=== PATIENT | male | born 2000 | race Hispanic/Latino ===

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

== ENCOUNTER 2022-06-29 13:54 | Emergency (ER) | payer OTHER ==
--- NOTE | 2022-06-29 14:54 | RAD REPORT ---
EXAM DESCRIPTION: Jules Single View06/29/2022 2:35 pm CLINICAL HISTORY: Chest pain COMPARISON: 2020 FINDINGS: The lungs appear clear of acute infiltrate. The heart is normal size IMPRESSION: No acute abnormalities displayed
--- NOTE | 2022-06-29 14:54 | RAD REPORT ---
EXAM DESCRIPTION: RAD - Ribs Left - 06/29/2022 2:35 pm CLINICAL HISTORY: Left rib pain FINDINGS: No fracture is seen
--- NOTE | 2022-06-29 15:42 | ER ---
Nurse's Notes [facility] Name: Gino Lim Age: 21 yrs Sex: Male : 2000 Arrival Date: 06/29/2022 Time: 13:54 Bed IW1 Private MD: Diagnosis: Contusion of left front wall of thorax Presentation: 06/29 14:07 Chief complaint: Patient states: Left rib pain - skateboarding and fell onto left arm. ld1 Negative LOC - did not hit head. Coronavirus screen: At this time, the client does not indicate any symptoms associated with coronavirus-19. Ebola Screen: No symptoms or risks identified at this time. Risk Assessment: Do you want to hurt yourself or someone else? Patient reports no desire to harm self or others. Onset of symptoms was June 29, 2022. 14:07 Method Of Arrival: Ambulatory ld1 14:07 Acuity: IRA 4 ld1 Triage Assessment: 14:07 General: Appears in no apparent distress. comfortable, Behavior is calm, cooperative, ld1 appropriate for age. Pain: Complains of pain in diaphragm Pain does not radiate. Pain currently is 0 out of 10 on a pain scale. at worst was 9 out of 10 on a pain scale. Quality of pain is described as throbbing. EENT: No signs and/or symptoms were reported regarding the EENT system. Neuro: Level of Consciousness is awake, alert, obeys commands, Oriented to person, place, time, situation. Cardiovascular: Capillary refill < 3 seconds Patient's skin is warm and dry. Respiratory: Airway is patent Respiratory effort is even, unlabored. GI: Abdomen is flat, non-distended. : No signs and/or symptoms were reported regarding the genitourinary system. Derm: No signs and/or symptoms reported regarding the dermatologic system. Musculoskeletal: No signs and/or symptoms reported regarding the musculoskeletal system. Historical: - Allergies: 14:07 No Known Allergies; ld1 - Home Meds: 14:07 None [Active]; ld1 - PMHx: 14: None; ld1 - PSHx: 14:07 None; ld1 - Immunization history:: Adult Immunizations up to date, Client reports receiving the 2nd dose of the Covid vaccine. - Social history:: Smoking status: Patient denies any tobacco usage or history of. Patient/guardian denies using alcohol. Screenin:44 [facility] ED Fall Risk Assessment (Adult) History of falling in the last 3 months, cm9 including since admission No falls in past 3 months (0 pts). Abuse screen: Denies threats or abuse. Denies injuries from another. Nutritional screening: No deficits noted. Tuberculosis screening: No symptoms or risk factors identified. Assessment: 15:44 Reassessment: See triage assessment. cm9 Vital Signs: 14:07 BP 124 / 73; Pulse 81; Resp 18; Temp 98.2(O); Pulse Ox 100% on R/A; Weight 61.23 kg; ld1 Height 6 ft. 0 in. ; Pain 0/10; 14:07 Body Mass Index 18.31 (61.23 kg, 182.88 cm) ld1 14:07 Pain Scale: Adult ld1 ED Course: 13:55 Patient arrived in ED. ts1 13:58 Snow Cruz FNP-C [facility] kb 13:58 Bo Goss DO is Attending Physician. kb 14:07 Triage completed. ld1 14:07 Arm band placed on right wrist. EKG completed in triage. Results shown to MD. EKG ld1 completed in triage. Results shown to MD. 14:37 Chest Single View XRAY In Process Unspecified. EDMS 14:37 Ribs Left XRAY In Process Unspecified. EDMS 15:44 Patient has correct armband on for positive identification. Placed in gown. Bed in low cm9 position. Call light in reach. Side rails up X2. Pulse ox on. NIBP on. Door closed. Noise minimized. 15:44 No provider procedures requiring assistance completed. Patient did not have IV access cm9 during this emergency room visit. Administered Medications: No medications were administered Medication: 15:44 VIS not applicable for this client. cm9 Outcome: 15:41 Discharge ordered by . nick 15:44 Discharged to home ambulatory. cm9 15:44 Condition: stable 15:44 Discharge instructions given to patient, Instructed on discharge instructions, follow up and referral plans. medication usage, Demonstrated understanding of instructions, follow-up care, medications, Prescriptions given X 1. 15:45 Patient left the ED. cm9 Signatures: Dispatcher [employer] EDMS Snow Cruz FNP-C FNP-Ckb Sims, Elisha, RN RN ld1 Ana Dwyer, RN RN cm9 Stacy Dugan, SUSAN DAVIS ts1
--- NOTE | 2022-06-29 15:42 | EDPHYS ---
Physician Documentation [facility] Name: Gino Lim Age: 21 yrs Sex: Male : 2000 Arrival Date: 06/29/2022 Time: 13:54 Bed IW1 Private MD: ED Physician Bo Goss HPI: 06/29 15:38 This 21 yrs old Male presents to ER via Ambulatory with complaints of RIB PAIN kb FROM FALL. 15:39 The patient or guardian reports chest pain that is located primarily in the anterior kb chest wall. Onset: The symptoms/episode began/occurred last night. The pain does not radiate. Associated signs and symptoms: The patient has no apparent associated signs or symptoms. The chest pain is described as aching. Duration: The patient or guardian reports a single episode, that is still ongoing. Modifying factors: the symptoms are aggravated by deep breath, movement. Severity of pain: At its worst the pain was moderate in the emergency department the pain has improved. The patient has not experienced similar symptoms in the past. The patient has not recently seen a physician. Pt reports he fell while skateboarding last night and landed with left arm underneath ribs. c/o left lower anterior rib pain. States he has no pain at rest. Pain only with movement and deep breath. Pt has no abd tenderness upon exam. Historical: - Allergies: 14:07 No Known Allergies; ld1 - Home Meds: 14:07 None [Active]; ld1 - PMHx: 14:07 None; ld1 - PSHx: 14:07 None; ld1 - Immunization history:: Adult Immunizations up to date, Client reports receiving the 2nd dose of the Covid vaccine. - Social history:: Smoking status: Patient denies any tobacco usage or history of. Patient/guardian denies using alcohol. ROS: 15:36 Constitutional: Negative for fever, chills, and weight loss. kb 15:36 Cardiovascular: Positive for chest pain, with movement, of the left anterior lower ribs. 15:36 All other systems are negative. Exam: 15:36 Constitutional: This is a well developed, well nourished patient who is awake, alert, kb and in no acute distress. Head/Face: Normocephalic, atraumatic. ENT: Moist Mucous membranes Cardiovascular: Regular rate and rhythm with a normal S1 and S2. No gallops, murmurs, or rubs. No pulse deficits. Respiratory: Respirations even and unlabored. No increased work of breathing. Talking in full sentences Abdomen/GI: Soft, non-tender. No distention Skin: Warm, dry with normal turgor. Normal color. MS/ Extremity: Pulses equal, no cyanosis. Neurovascular intact. Full, normal range of motion. Neuro: Awake and alert, GCS 15, oriented to person, place, time, and situation. Moves all extremities. Normal gait. 15:36 Chest/axilla: Inspection: normal, Palpation: tenderness, that is moderate, of the left anterior lower ribs, that totally reproduces the patient's complaints. Vital Signs: 14:07 BP 124 / 73; Pulse 81; Resp 18; Temp 98.2(O); Pulse Ox 100% on R/A; Weight 61.23 kg; ld1 Height 6 ft. 0 in. ; Pain 0/10; 14:07 Body Mass Index 18.31 (61.23 kg, 182.88 cm) ld1 14:07 Pain Scale: Adult ld1 MDM: 14:05 Patient medically screened. kb 15:03 Data reviewed: vital signs, nurses notes. kb 15:37 Differential diagnosis: fracture, contusion. Counseling: I had a detailed discussion kb with the patient and/or guardian regarding: the historical points, exam findings, and any diagnostic results supporting the discharge/admit diagnosis, radiology results, the need for outpatient follow up, a family practitioner, to return to the emergency department if symptoms worsen or persist or if there are any questions or concerns that arise at home. 06/29 14:10 Order name: Chest Single View XRAY; Complete Time: 14:59 kb 06/29 14:10 Order name: Ribs Left XRAY; Complete Time: 14:59 kb Administered Medications: No medications were administered Disposition: 19:33 Co-signature as Attending Physician, Bo MCGHEE was immediately available on-site ms3 in the Emergency Department for consultation in the care of the patient. Disposition Summary: 06/29/22 15:41 Discharge Ordered Location: Home kb Condition: Stable kb Diagnosis - Contusion of left front wall of thorax kb Followup: kb - With: Emergency Department - When: As needed - Reason: Worsening of condition Followup: kb - With: Private Physician - When: 2 - 3 days - Reason: Recheck today's complaints, Continuance of care, Re-evaluation by your physician Discharge Instructions: - Discharge Summary Sheet kb - Rib Contusion kb Forms: - Medication Reconciliation Form kb - Thank You Letter kb - Antibiotic Education kb - Prescription Opioid Use kb Prescriptions: - Diclofenac Sodium 75 mg Oral tablet,delayed release (DR/EC) - take 1 tablet by ORAL route 2 times per day As needed; 30 tablet; Refills: 0, kb Product Selection Permitted Signatures: Dispatcher [employer] EDMS Snow Cruz, SOLE TACKER-C SOLE TACKER-Bo Torres, DO ms3 Elisha Goss, RN RN ld1
[2022-06-29 15:52] VITALS: BP 124/73; TEMP 98.2; O2SAT 100
== END 2022-06-29 15:45 | disposition home or self-care (01) ==
LOC: ER 13:54
DX: S20.212A Contusion of left front wall of thorax, initial encounter (principal)
CPT/HCPCS: 71045; 99283

== ENCOUNTER 2022-07-04 22:28 | Emergency (ER) | payer OTHER ==
--- OUTSIDE RECORDS SUMMARY | 2022-07-04 22:33 | XMS REPORT | Continuity of Care Document ---
:2000 Author Organization [facility] t Address [address] [place] [address] [address] [place] [address] Care Team Providers Name Role Phone Bobbi Hillman PA-C Primary Care Physician [phone] Doctor Unassigned, Parral Attending Clinician Unavailable Bobbi Hillman PA-C Attending Clinician BOBBI HILLMAN Attending Clinician Unavailable DEMARCUS MORA Attending Clinician Unavailable Payers Payer Name Policy Type Policy Number Effective Date Expiration Date S ource Problems Condition Condition Condition Status Onset Resolution Last Treating Co mments Source Name Details Category Date Date Treatment Clinician Date No known No known Disease Unive rs active active ity of problems problems [facility] Allergies, Adverse Reactions, Alerts Allergy Allergy Status Severity Reaction(s) Onset Inactive Treating Comm ents Source Name Type Date Date Clinician NO KNOWN Drug Active Univers ALLERGIE Class ity of S [facility] Social History Social Habit Start Date Stop Date Quantity Comments Source Tobacco use and 2017-07-11 2017-07-11 Never used [facility] exposure 00:00:00 00:00:00 [facility] Sex Assigned At 2000 2002 [facility] 00:00:00 00:00:00 [facility] Smoking Status Start Date Stop Date Source Never smoker [facility] Medications Ordered Filled Start Stop Current Ordering Indication Dosage Frequency Signature Comments Components Source Medication Medication Date Date Medication? Clinician (SIG) Name Name nina 2020-03 Yes [id number] APPLY TO U aguedaers (NATROBA) 03-12 DRY HAIR, ity o f 0.9 % 00:00: COMPLETELY [place] suspension 00 SATURATE. Medi matti LET SIT 10 Branch MINUTES, THEN WASH HAIR. REMOVE NITS spinosad 1 Yes [id number] APPLY TO U nivers (NATROBA) 1- DRY HAIR, ity o f 0.9 % 00:00: COMPLETELY [place] suspension 00 SATURATE. Medi matti LET SIT 10 Branch MINUTES, THEN WASH HAIR. REMOVE NITS spinosad 2020-0 Yes [id number] Apply to U nivers (NATROBA) 9 dry hair, ity o f 0.9 % 00:00: completely [place] suspension 00 saturate. Medi matti Let sit 10 Branch minutes, then wash hair. Remove nits spinosad 2020-0 Yes [id number] Apply to U nivers (NATROBA) 9 dry hair, ity o f 0.9 % 00:00: completely [place] suspension 00 saturate. Medi matti Let sit 10 Branch minutes, then wash hair. Remove nits spinosad 2020-0 2020- No [id number] Apply to Univers (NATROBA) 11-10 11- dry hair, ity of 0.9 % 00:00: 00:00 completely [place] suspension 00 :00 saturate. Medi matti Let sit 10 Branch minutes, then wash hair. Remove nits sulfamethox 2020-0 Yes [id number] 1{tbl} Take 1 Univers azole-trime 2-10 tablet by ity of thoprim 00:00: mouth 2 [place] (BACTRIM 00 (two) Medical DS) 800-160 times Branch mg per daily. tablet ketoconazol 2020-0 Yes [id number] Apply, Univers e 2 % 2-10 lather ity of shampoo 00:00: area, [place] 00 leave 5 to Medical 10 minutes Branch and rinse. Can use Daily ketoconazol 2020-0 Yes [id number] Apply to Univers e 2 % cream 2-10 area(s) ity o f 00:00: daily. [place] 00 Medical Branch sulfamethox 2020-0 Yes [id number] 1{tbl} Take 1 Univers azole-trime 2-10 tablet by ity of thoprim 00:00: mouth 2 [place] (BACTRIM 00 (two) Medical DS) 800-160 times Branch mg per daily. tablet ketoconazol 2020-0 Yes [id number] Apply, Univers e 2 % 2-10 lather ity of shampoo 00:00: [facility], [place] 00 leave 5 to Medical 10 minutes Branch and rinse. Can use Daily ketoconazol 2020-0 Yes [id number] Apply to Univers e 2 % cream 2-10 area(s) ity o f 00:00: daily. [place] [address] Medical Branch sulfamethox 2020-0 Yes [id number] 1{tbl} Take 1 Univers azole-trime 2-10 tablet by ity of thoprim 00:00: mouth 2 [place] (BACTRIM 00 (two) Medical DS) 800-160 times Branch mg per daily. tablet ketoconazol 2020-0 Yes [id number] Apply, Univers e 2 % 2-10 lather ity of shampoo 00:00: [place], [place] leave 5 to Medical 10 minutes Branch and rinse. Can use Daily ketoconazol 2020-0 Yes [id number] Apply to Univers e 2 % cream 2-10 area(s) ity o f 00:00: daily. [place] [address] Medical Branch sulfamethox 2020-0 Yes [id number] 1{tbl} Take 1 Univers azole-trime 2-10 tablet by ity of thoprim 00:00: mouth 2 [place] (BACTRIM 00 (two) Medical DS) 800-160 times Branch mg per daily. tablet ketoconazol 2020-0 Yes [id number] Apply, Univers e 2 % 2-10 lather ity of shampoo 00:00: [place], [place] leave 5 to Medical 10 minutes Branch and rinse. Can use Daily ketoconazol 2020-0 Yes [id number] Apply to Univers e 2 % cream 2-10 area(s) ity o f 00:00: daily. [place] [address] Medical Branch sulfamethox 2020-0 Yes [id number] 1{tbl} Take 1 Univers azole-trime 2-10 tablet by ity of thoprim 00:00: mouth 2 [place] (BACTRIM 00 (two) Medical DS) 800-160 times Branch mg per daily. tablet ketoconazol 2020-0 Yes [id number] Apply, Univers e 2 % 2-10 lather ity of shampoo 00:00: [facility], [place] 00 leave 5 to Medical 10 minutes Branch and rinse. Can use Daily ketoconazol 2020-0 Yes [id number] Apply to Univers e 2 % cream 2-10 area(s) ity o f 00:00: daily. [place] [address] Medical Branch sulfamethox 2020-0 Yes [id number] 1{tbl} Take 1 Univers azole-trime 2-10 tablet by ity of thoprim 00:00: mouth 2 [place] (BACTRIM 00 (two) Medical DS) 800-160 times Branch mg per daily. tablet ketoconazol 2020-0 Yes [id number] Apply, Univers e 2 % 2-10 lather ity of shampoo 00:00: [facility], [place] 00 leave 5 to Medical 10 minutes Branch and rinse. Can use Daily ketoconazol 2020-0 Yes [id number] Apply to Univers e 2 % cream 2-10 area(s) ity o f 00:00: daily. [place] [address] Medical Branch sulfamethox 2020-0 Yes [id number] 1{tbl} Take 1 Univers azole-trime 2-10 tablet by ity of thoprim 00:00: mouth 2 [place] (BACTRIM 00 (two) Medical DS) 800-160 times Branch mg per daily. tablet ketoconazol 2020-0 Yes [id number] Apply, Univers e 2 % 2-10 lather ity of shampoo 00:00: [facility], [place] 00 leave 5 to Medical 10 minutes Branch and rinse. Can use Daily ketoconazol 2020-0 Yes [id number] Apply to Univers e 2 % cream 2-10 area(s) ity o f 00:00: daily. [place] [address] Medical Branch amoxicillin 2020-0 2020- No TAKE 1 Uni vers 500 mg 03-10 CAPSULE BY ity of capsule 00:00: 00:00 MOUTH 3 [place] 00 :00 TIMES A Medical DAY UNTILL Branch ALL GONE DENTA 5000 2020-0 2020- No USE 2 Unive rs PLUS 1.1 % 03-10-10 TIMES A ity o f Crea 00:00: 00:00 DAY ONCE [place] 00 :00 IN THE Medical MORNING Branch AND ONCE AT NIGHT DO NOT DRINK FOR AT LEAST 30 MINUTES amoxicillin 2020-0 2020- No TAKE 1 Uni vers 500 mg 03-1010 CAPSULE BY ity of capsule 00:00: 00:00 MOUTH 3 [place] 00 :00 TIMES A Medical DAY UNTILL Branch ALL GONE DENTA 5000 2020-0 2020- No USE 2 Unive rs PLUS 1.1 % 1-07 02-10 TIMES A ity o f Crea 00:00: 00:00 DAY ONCE [place] 00 :00 IN THE Medical MORNING Branch AND ONCE AT NIGHT DO NOT DRINK FOR AT LEAST 30 MINUTES spinosad 2019-0 2019- No [id number] Apply to Univers (NATROBA) 8-15 08-16 area(s) ity of 0.9 % 00:00: 04:59 once now [place] suspension 00 :00 for 1 Medical dose. Branch tretinoin 2017-0 Yes Apply to Univ ers 0.1 % cream 5-10 area(s) at it y of 00:00: bedtime. Medical Branch tretinoin 2017-0 Yes Apply to Univ ers 0.1 % cream 5-10 area(s) at it y of 00:00: bedtime. Medical Branch tretinoin 2017-0 Yes Apply to Univ ers 0.1 % cream 5-10 area(s) at it y of 00:00: bedtime. Medical Branch tretinoin 2017-0 Yes Apply to Univ ers 0.1 % cream 5-10 area(s) at it y of 00:00: bedtime. Medical Branch tretinoin 2017-0 Yes Apply to Univ ers 0.1 % cream 5-10 area(s) at it y of 00:00: bedtime. Medical Branch tretinoin 2017-0 Yes Apply to Univ ers 0.1 % cream 5-10 area(s) at it y of 00:00: bedtime. Medical Branch tretinoin 2017-0 Yes Apply to Univ ers 0.1 % cream 5-10 area(s) at it y of 00:00: bedtime. Medical Branch tretinoin 2017-0 Yes Apply to Univ ers 0.1 % cream 5-10 area(s) at it y of 00:00: bedtime. Medical Branch tretinoin 2017-0 Yes Apply to Univ ers 0.1 % cream 5-10 area(s) at it y of 00:00: bedtime. Medical Branch tretinoin 2017-0 Yes Apply to Univ ers 0.1 % cream 5-10 area(s) at it y of 00:00: bedtime. Medical Branch tretinoin 2017-0 Yes Apply to Univ ers 0.1 % cream 5-10 area(s) at it y of 00:00: bedtime. [address] Immunizations Ordered Immunization Filled Immunization Date Status Commen ts Source Name Name HPV9 2017-07-11 Completed University of 00:00:00 [facility] HPV9 2017-07-11 Completed University of 00:00:00 [facility] HPV9 2017-07-11 Completed University of 00:00:00 [facility] HPV9 2017-07-11 Completed University of 00:00:00 [facility] HPV9 2017-07-11 Completed University of 00:00:00 [facility] HPV9 2017-07-11 Completed University of 00:00:00 [facility] HPV9 2017-07-11 Completed University of 00:00:00 [facility] HPV9 2017-07-11 Completed University of 00:00:00 [facility] HPV9 2017-07-11 Completed University of 00:00:00 [facility] HPV9 2017-07-11 Completed University of 00:00:00 [facility] HPV9 2017-07-11 Completed University of 00:00:00 [facility] HPV 2015-09-23 Completed University of 00:00:00 [facility] HPV 2015-09-23 Completed University of 00:00:00 [facility] HPV 2015-09-23 Completed University of 00:00:00 [facility] HPV 2015-09-23 Completed University of 00:00:00 [facility] HPV 2015-09-23 Completed University of 00:00:00 [facility] HPV 2015-09-23 Completed University of 00:00:00 [facility] HPV 2015-09-23 Completed University of 00:00:00 [facility] HPV 2015-09-23 Completed University of 00:00:00 [facility] HPV 2015-09-23 Completed University of 00:00:00 [facility] HPV 2015-09-23 Completed University of 00:00:00 [facility] HPV 2015-09-23 Completed University of 00:00:00 [facility] Meningococcal 2014-09-09 Completed University of Polysaccharide 00:00:00 [place] Medi matti (groups A, C, Y and Branc h W-135) conjugate vaccine (MCV4P) Tdap 2014-09-09 Completed University of 00:00:00 [facility] Meningococcal 2014-09-09 Completed University of Polysaccharide 00:00:00 [place] Medi matti (groups A, C, Y and Branc h W-135) conjugate vaccine (MCV4P) Tdap 2014-09-09 Completed University of 00:00:00 [facility] Meningococcal 2014-09-09 Completed University of Polysaccharide 00:00:00 [place] Medi matti (groups A, C, Y and Branc h W-135) conjugate vaccine (MCV4P) Tdap 2014-09-09 Completed University of 00:00:00 [facility] Meningococcal 2014-09-09 Completed University of Polysaccharide 00:00:00 [place] Medi matti (groups A, C, Y and Branc h W-135) conjugate vaccine (MCV4P) Tdap 2014-09-09 Completed University of 00:00:00 [facility] Meningococcal 2014-09-09 Completed University of Polysaccharide 00:00:00 [place] Medi matti (groups A, C, Y and Branc h W-135) conjugate vaccine (MCV4P) Tdap 2014-09-09 Completed University of 00:00:00 [facility] Meningococcal 2014-09-09 Completed University of Polysaccharide 00:00:00 [place] Medi matti (groups A, C, Y and Branc h W-135) conjugate vaccine (MCV4P) Meningococcal 2014-09-09 Completed University of Polysaccharide 00:00:00 [place] Medi matti (groups A, C, Y and Branc h W-135) conjugate vaccine (MCV4P) TDAP 2014-09-09 Completed University of 00:00:00 [facility] Meningococcal 2014-09-09 Completed University of Polysaccharide 00:00:00 [place] Medi matti (groups A, C, Y and Branc h W-135) conjugate vaccine (MCV4P) TDAP 2014-09-09 Completed University of 00:00:00 [facility] Meningococcal 2014-09-09 Completed University of Polysaccharide 00:00:00 [place] Medi matti (groups A, C, Y and Branc h W-135) conjugate vaccine (MCV4P) Tdap 2014-09-09 Completed University of 00:00:00 [facility] TDAP 2014-09-09 Completed University of 00:00:00 [facility] Meningococcal 2014-09-09 Completed University of Polysaccharide 00:00:00 [place] Medi matti (groups A, C, Y and Branc h W-135) conjugate vaccine (MCV4P) TDAP 2014-09-09 Completed University of 00:00:00 [facility] Meningococcal 2014-09-09 Completed University of Polysaccharide 00:00:00 [facility] matti (groups A, C, Y and Branc h W-135) conjugate vaccine (MCV4P) Tdap 2014-09-09 Completed University of 00:00:00 [facility] Influenza Virus 2011-12-27 Completed Universit y of Vaccine 00:00:00 [facility] Influenza Virus 2011-12-27 Completed Universit y of Vaccine 00:00:00 [facility] Influenza Virus 2011-12-27 Completed Universit y of Vaccine 00:00:00 [facility] Influenza Virus 2011-12-27 Completed Universit y of Vaccine 00:00:00 [facility] Influenza Virus 2011-12-27 Completed Universit y of Vaccine 00:00:00 [facility] Influenza Virus 2011-12-27 Completed Universit y of Vaccine 00:00:00 [facility] Influenza Virus 2011-12-27 Completed Universit y of Vaccine 00:00:00 [facility] Influenza Virus 2011-12-27 Completed Universit y of Vaccine 00:00:00 [facility] Influenza Virus 2011-12-27 Completed Universit y of Vaccine 00:00:00 [facility] Influenza Virus 2011-12-27 Completed Universit y of Vaccine 00:00:00 [facility] Influenza Virus 2011-12-27 Completed Universit y of Vaccine 00:00:00 [facility] HEPATITIS A 2008-04-20 Completed University of 00:00:00 [facility] HEPATITIS A 2008-04-20 Completed University of 00:00:00 [facility] HEPATITIS A 2008-04-20 Completed University of 00:00:00 [facility] HEPATITIS A 2008-04-20 Completed University of 00:00:00 [facility] HEPATITIS A 2008-04-20 Completed University of 00:00:00 [facility] HEPATITIS A 2008-04-20 Completed University of 00:00:00 [facility] HEPATITIS A 2008-04-20 Completed University of 00:00:00 [facility] HEPATITIS A 2008-04-20 Completed University of 00:00:00 [facility] HEPATITIS A 2008-04-20 Completed University of 00:00:00 [facility] HEPATITIS A 2008-04-20 Completed University of 00:00:00 [facility] HEPATITIS A 2008-04-20 Completed University of 00:00:00 [facility] HEPATITIS A 2007-10-16 Completed University of 00:00:00 [facility] HEPATITIS A 2007-10-16 Completed University of 00:00:00 [facility] HEPATITIS A 2007-10-16 Completed University of 00:00:00 [facility] HEPATITIS A 2007-10-16 Completed University of 00:00:00 [facility] HEPATITIS A 2007-10-16 Completed University of 00:00:00 [facility] HEPATITIS A 2007-10-16 Completed University of 00:00:00 [facility] HEPATITIS A 2007-10-16 Completed University of 00:00:00 [facility] HEPATITIS A 2007-10-16 Completed University of 00:00:00 [facility] HEPATITIS A 2007-10-16 Completed University of 00:00:00 [facility] HEPATITIS A 2007-10-16 Completed University of 00:00:00 [facility] HEPATITIS A 2007-10-16 Completed University of 00:00:00 [facility] MMR 2006 Completed University of 00:00:00 [facility] Pneumococcal 13 2006 Completed Universit y of Conjugate, PCV13 00:00:00 [place] Me dical (Prevnar 13) Branch Varicella 2006 Completed University of (varivax)(chicken 00:00:00 [place] M edical pox) Branch DTAP 2006 Completed University of 00:00:00 [facility] MMR 2006 Completed University of 00:00:00 [facility] Pneumococcal 13 2006 Completed Universit y of Conjugate, PCV13 00:00:00 [place] Me dical (Prevnar 13) Branch Varicella 2006 Completed University of (varivax)(chicken 00:00:00 [place] M edical pox) Branch DTAP 2006 Completed University of 00:00:00 [facility] MMR 2006 Completed University of 00:00:00 [facility] DTAP 2006 Completed University of 00:00:00 [facility] Pneumococcal 13 2006 Completed Universit y of Conjugate, PCV13 00:00:00 [place] Me dical (Prevnar 13) Branch Varicella 2006 Completed University of (varivax)(chicken 00:00:00 [place] M edical pox) Branch DTAP 2006 Completed University of 00:00:00 [facility] MMR 2006 Completed University of 00:00:00 [place] [facility] Pneumococcal 13 2006 Completed Universit y of Conjugate, PCV13 00:00:00 [place] Me dical (Prevnar 13) Branch Varicella 2006 Completed University of (varivax)(chicken 00:00:00 [place] M edical pox) Branch DTAP 2006 Completed University of 00:00:00 [facility] MMR 2006 Completed University of 00:00:00 [facility] Pneumococcal 13 2006 Completed Universit y of Conjugate, PCV13 00:00:00 [place] Me dical (Prevnar 13) Branch Varicella 2006 Completed University of (varivax)(chicken 00:00:00 [place] M edical pox) Branch DTAP 2006 Completed University of 00:00:00 [facility] MMR 2006 Completed University of 00:00:00 [facility] Pneumococcal 13 2006 Completed Universit y of Conjugate, PCV13 00:00:00 [place] Me dical (Prevnar 13) Branch Varicella 2006 Completed University of (varivax)(chicken 00:00:00 [place] M edical pox) Branch MMR 2006 Completed University of 00:00:00 [facility] DTAP 2006 Completed University of 00:00:00 [facility] MMR 2006 Completed University of 00:00:00 [facility] Pneumococcal 13 2006 Completed Universit y of Conjugate, PCV13 00:00:00 [place] Me dical (Prevnar 13) Branch Varicella 2006 Completed University of (varivax)(chicken 00:00:00 [place] M edical pox) Branch Pneumococcal 13 2006 Completed Universit y of Conjugate, PCV13 00:00:00 [place] Me dical (Prevnar 13) Branch DTAP 2006 Completed University of 00:00:00 [facility] MMR 2006 Completed University of 00:00:00 [facility] Pneumococcal 13 2006 Completed Universit y of Conjugate, PCV13 00:00:00 [place] Me dical (Prevnar 13) Branch Varicella 2006 Completed University of (varivax)(chicken 00:00:00 [place] M edical pox) Branch Varicella 2006 Completed University of (varivax)(chicken 00:00:00 [place] M edical pox) Branch DTAP 2006 Completed University of 00:00:00 [facility] MMR 2006 Completed University of 00:00:00 [facility] Pneumococcal 13 2006 Completed Universit y of Conjugate, PCV13 00:00:00 [facility] dical (Prevnar 13) Branch Varicella 2006 Completed University of (varivax)(chicken 00:00:00 [place] M edical pox) Branch DTAP 2006 Completed University of 00:00:00 [facility] MMR 2006 Completed University of 00:00:00 [facility] Pneumococcal 13 2006 Completed Universit y of Conjugate, PCV13 00:00:00 [facility] dical (Prevnar 13) Branch Varicella 2006 Completed University of (varivax)(chicken 00:00:[address] [facility] edical pox) Branch DTAP 2006 Completed University of 00:00:00 [facility] DTAP 2004-02-14 Completed University of 00:00:00 [facility] DTAP 2004-02-14 Completed University of 00:00:00 [facility] DTAP 2004-02-14 Completed University of 00:00:00 [facility] DTAP 2004-02-14 Completed University of 00:00:00 [facility] DTAP 2004-02-14 Completed University of 00:00:00 [facility] DTAP 2004-02-14 Completed University of 00:00:00 [facility] DTAP 2004-02-14 Completed University of 00:00:00 [facility] DTAP 2004-02-14 Completed University of 00:00:00 [facility] DTAP 2004-02-14 Completed University of 00:00:00 [facility] DTAP 2004-02-14 Completed University of 00:00:00 [facility] DTAP 2004-02-14 Completed University of 00:00:00 [facility] Polio (IPV/OPV) 2004-01-14 Completed Universit y of 00:00:00 [facility] Polio (IPV/OPV) 2004-01-14 Completed Universit y of 00:00:00 [facility] Polio (IPV/OPV) 2004-01-14 Completed Universit y of 00:00:00 [facility] Polio (IPV/OPV) 2004-01-14 Completed Universit y of 00:00:00 [facility] Polio (IPV/OPV) 2004-01-14 Completed Universit y of 00:00:00 [facility] Polio (IPV/OPV) 2004-01-14 Completed Universit y of 00:00:00 [facility] Polio (IPV/OPV) 2004-01-14 Completed Universit y of 00:00:00 [facility] Polio (IPV/OPV) 2004-01-14 Completed Universit y of 00:00:00 [facility] Polio (IPV/OPV) 2004-01-14 Completed Universit y of 00:00:00 [facility] Polio (IPV/OPV) 2004-01-14 Completed Universit y of 00:00:00 [facility] Polio (IPV/OPV) 2004-01-14 Completed Universit y of 00:00:00 [facility] MMR 2004-01-04 Completed University of 00:00:00 [facility] Varicella 2004-01-04 Completed University of (varivax)(chicken 00:00:00 [place] M edical pox) Branch HIB 4 Dose Schedule 2004-01-04 Completed Unive rsity of 00:00:00 [facility] MMR 2004-01-04 Completed University of 00:00:00 [facility] Varicella 2004-01-04 Completed University of (varivax)(chicken 00:00:00 [place] M edical pox) Branch HIB 4 Dose Schedule 2004-01-04 Completed Unive rsity of 00:00:00 [facility] MMR 2004-01-04 Completed University of 00:00:00 [facility] Varicella 2004-01-04 Completed University of (varivax)(chicken 00:00:00 [place] M edical pox) Branch HIB 4 Dose Schedule 2004-01-04 Completed Unive rsity of 00:00:00 [facility] HIB 4 Dose Schedule 2004-01-04 Completed Unive rsity of 00:00:00 [facility] MMR 2004-01-04 Completed University of 00:00:00 [facility] Varicella 2004-01-04 Completed University of (varivax)(chicken 00:00:00 [place] M edical pox) Branch HIB 4 Dose Schedule 2004-01-04 Completed Unive rsity of 00:00:00 [facility] MMR 2004-01-04 Completed University of 00:00:00 [facility] Varicella 2004-01-04 Completed University of (varivax)(chicken 00:00:00 [place] M edical pox) Branch HIB 4 Dose Schedule 2004-01-04 Completed Unive rsity of 00:00:00 [facility] MMR 2004-01-04 Completed [facility] 00:00:00 [facility] MMR 2004-01-04 Completed [facility] of 00:00:00 [facility] Varicella 2004-01-04 Completed University of (varivax)(chicken 00:00:00 [place] [facility] pox) [facility] HIB 4 Dose Schedule 2004-01-04 Completed Unive rsity of 00:00:00 [facility] MMR 2004-01-04 Completed [facility] of 00:00:00 [facility] Varicella 2004-01-04 Completed University of (varivax)(chicken 00:00:00 [place] [facility] pox) [facility] HIB 4 Dose Schedule 2004-01-04 Completed Unive rsity of 00:00:00 [facility] MMR 2004-01-04 Completed [facility] of 00:00:00 [facility] Varicella 2004-01-04 Completed [facility] of (varivax)(chicken 00:00:00 [place] [facility] pox) [facility] Varicella 2004-01-04 Completed [facility] of (varivax)(chicken 00:00:00 [place] [facility] pox) [facility] HIB 4 Dose Schedule 2004-01-04 Completed Unive rsity of 00:00:00 [facility] MMR 2004-01-04 Completed [facility] of 00:00:00 [facility] Varicella 2004-01-04 Completed [facility] of (varivax)(chicken 00:00:00 [place] [facility] pox) [facility] HIB 4 Dose Schedule 2004-01-04 Completed Unive rsity of 00:00:00 [facility] MMR 2004-01-04 Completed [facility] of 00:00:00 [facility] Varicella 2004-01-04 Completed [facility] of (varivax)(chicken 00:00:00 [place] [facility] pox) [facility] HIB 4 Dose Schedule 2004-01-04 Completed Unive rsity of 00:00:00 [facility] Polio (IPV/OPV) 2003-11-14 Completed Universit y of 00:00:00 [facility] HIB 4 Dose Schedule 2003-11-14 Completed Unive rsity of 00:00:00 [place] [facility] Polio (IPV/OPV) 2003-11-14 Completed Universit y of 00:00:00 [place] [facility] HIB 4 Dose Schedule 2003-11-14 Completed Unive rsity of 00:00:00 [place] [facility] Polio (IPV/OPV) 2003-11-14 Completed Universit y of 00:00:00 [facility] HIB 4 Dose Schedule 2003-11-14 Completed Unive rsity of 00:00:00 [facility] HIB 4 Dose Schedule 2003-11-14 Completed Unive rsity of 00:00:00 [place] [facility] Polio (IPV/OPV) 2003-11-14 Completed Universit y of 00:00:00 [facility] HIB 4 Dose Schedule 2003-11-14 Completed Unive rsity of 00:00:00 [facility] Polio (IPV/OPV) 2003-11-14 Completed Universit y of 00:00:00 [facility] HIB 4 Dose Schedule 2003-11-14 Completed Unive rsity of 00:00:00 [facility] Polio (IPV/OPV) 2003-11-14 Completed Universit y of 00:00:00 [facility] HIB 4 Dose Schedule 2003-11-14 Completed Unive rsity of 00:00:00 [facility] Polio (IPV/OPV) 2003-11-14 Completed Universit y of 00:00:00 [facility] HIB 4 Dose Schedule 2003-11-14 Completed Unive rsity of 00:00:00 [facility] Polio (IPV/OPV) 2003-11-14 Completed Universit y of 00:00:00 [facility] Polio (IPV/OPV) 2003-11-14 Completed Universit y of 00:00:00 [facility] HIB 4 Dose Schedule 2003-11-14 Completed Unive rsity of 00:00:00 [facility] Polio (IPV/OPV) 2003-11-14 Completed Universit y of 00:00:00 [facility] HIB 4 Dose Schedule 2003-11-14 Completed Unive rsity of 00:00:00 [facility] Polio (IPV/OPV) 2003-11-14 Completed Universit y of 00:00:00 [facility] HIB 4 Dose Schedule 2003-11-14 Completed Unive rsity of 00:00:00 [facility] Hep B, Adol or Pedi 2003-06-17 Completed Unive rsity of Dosage 00:00:00 [facility] Pneumococcal 13 2003-06-17 Completed Universit y of Conjugate, PCV13 00:00:00 [place] [facility] (Prevnar 13) Branch Polio (IPV/OPV) 2003-06-17 Completed Universit y of 00:00:00 [facility] DTAP 2003-06-17 Completed University of 00:00:00 [facility] HIB 4 Dose Schedule 2003-06-17 Completed Unive rsity of 00:00:00 [facility] Hep B, Adol or Pedi 2003-06-17 Completed Unive rsity of Dosage 00:00:00 [facility] Pneumococcal 13 2003-06-17 Completed Universit y of Conjugate, PCV13 00:00:00 [facility] dical (Prevnar 13) Branch Polio (IPV/OPV) 2003-06-17 Completed Universit y of 00:00:00 [facility] DTAP 2003-06-17 Completed University of 00:00:00 [facility] DTAP 2003-06-17 Completed University of 00:00:00 [facility] HIB 4 Dose Schedule 2003-06-17 Completed Unive rsity of 00:00:00 [facility] Hep B, Adol or Pedi 2003-06-17 Completed Unive rsity of Dosage 00:00:00 [facility] Pneumococcal 13 2003-06-17 Completed Universit y of Conjugate, PCV13 00:00:00 [facility] dical (Prevnar 13) Branch Polio (IPV/OPV) 2003-06-17 Completed Universit y of 00:00:00 [facility] HIB 4 Dose Schedule 2003-06-17 Completed Unive rsity of 00:00:00 [facility] DTAP 2003-06-17 Completed University of 00:00:00 [facility] HIB 4 Dose Schedule 2003-06-17 Completed Unive rsity of 00:00:00 [facility] Hep B, Adol or Pedi 2003-06-17 Completed Unive rsity of Dosage 00:00:00 [facility] Pneumococcal 13 2003-06-17 Completed Universit y of Conjugate, PCV13 00:00:00 [facility] dical (Prevnar 13) Branch Polio (IPV/OPV) 2003-06-17 Completed Universit y of 00:00:00 [facility] DTAP 2003-06-17 Completed University of 00:00:00 [facility] HIB 4 Dose Schedule 2003-06-17 Completed Unive rsity of 00:00:00 [facility] Hep B, Adol or Pedi 2003-06-17 Completed Unive rsity of Dosage 00:00:00 [facility] Pneumococcal 13 2003-06-17 Completed Universit y of Conjugate, PCV13 00:00:00 [place] [facility] (Prevnar 13) Branch Hep B, Adol or Pedi 2003-06-17 Completed Unive rsity of Dosage 00:00:00 [facility] Polio (IPV/OPV) 2003-06-17 Completed Universit y of 00:00:00 [facility] DTAP 2003-06-17 Completed University of 00:00:00 [facility] HIB 4 Dose Schedule 2003-06-17 Completed Unive rsity of 00:00:00 [facility] Hep B, Adol or Pedi 2003-06-17 Completed Unive rsity of Dosage 00:00:00 [facility] Pneumococcal 13 2003-06-17 Completed Universit y of Conjugate, PCV13 00:00:00 [facility] dical (Prevnar 13) Branch Polio (IPV/OPV) 2003-06-17 Completed Universit y of 00:00:00 [facility] DTAP 2003-06-17 Completed University of 00:00:00 [facility] HIB 4 Dose Schedule 2003-06-17 Completed Unive rsity of 00:00:00 [facility] Hep B, Adol or Pedi 2003-06-17 Completed Unive rsity of Dosage 00:00:00 [facility] Pneumococcal 13 2003-06-17 Completed Universit y of Conjugate, PCV13 00:00:00 [facility] dical (Prevnar 13) Branch Pneumococcal 13 2003-06-17 Completed Universit y of Conjugate, PCV13 00:00:00 [place] [facility] (Prevnar 13) Branch Polio (IPV/OPV) 2003-06-17 Completed Universit y of 00:00:00 [facility] Polio (IPV/OPV) 2003-06-17 Completed Universit y of 00:00:00 [facility] DTAP 2003-06-17 Completed University of 00:00:00 [facility] HIB 4 Dose Schedule 2003-06-17 Completed Unive rsity of 00:00:00 [facility] Hep B, Adol or Pedi 2003-06-17 Completed Unive rsity of Dosage 00:00:00 [facility] Pneumococcal 13 2003-06-17 Completed Universit y of Conjugate, PCV13 00:00:00 [facility] dical (Prevnar 13) Branch Polio (IPV/OPV) 2003-06-17 Completed Universit y of 00:00:00 [facility] DTAP 2003-06-17 Completed University of 00:00:00 [facility] HIB 4 Dose Schedule 2003-06-17 Completed Unive rsity of 00:00:00 [facility] Hep B, Adol or Pedi 2003-06-17 Completed Unive rsity of Dosage 00:00:00 [facility] Pneumococcal 13 2003-06-17 Completed Universit y of Conjugate, PCV13 00:00:00 [facility] dical (Prevnar 13) Branch Polio (IPV/OPV) 2003-06-17 Completed Universit y of 00:00:00 [facility] DTAP 2003-06-17 Completed University of 00:00:00 [facility] HIB 4 Dose Schedule 2003-06-17 Completed Unive rsity of 00:00:00 [facility] Hep B, Adol or Pedi 2003-06-17 Completed Unive rsity of Dosage 00:00:00 [facility] Pneumococcal 13 2003-06-17 Completed Universit y of Conjugate, PCV13 00:00:00 [facility] dical (Prevnar 13) Branch Polio (IPV/OPV) 2003-06-17 Completed Universit y of 00:00:00 [facility] DTAP 2003-06-17 Completed University of 00:00:00 [facility] HIB 4 Dose Schedule 2003-06-17 Completed Unive rsity of 00:00:00 [facility] DTAP 2003-03-17 Completed University of 00:00:00 [facility] Pneumococcal 13 2003-03-17 Completed Universit y of Conjugate, PCV13 00:00:00 [facility] dical (Prevnar 13) Branch HIB 4 Dose Schedule 2003-03-17 Completed Unive rsity of 00:00:00 [facility] DTAP 2003-03-17 Completed University of 00:00:00 [facility] HIB 4 Dose Schedule 2003-03-17 Completed Unive rsity of 00:00:00 [facility] Pneumococcal 7 2003-03-17 Completed University of Conjugate, PCV7 00:00:00 [place] [facility] (Prevnar7) Branch Polio (IPV/OPV) 2003-03-17 Completed Universit y of 00:00:00 [facility] Pneumococcal 7 2003-03-17 Completed University of Conjugate, PCV7 00:00:00 [place] [facility] (Prevnar7) Branch Polio (IPV/OPV) 2003-03-17 Completed Universit y of 00:00:00 [facility] Pneumococcal 13 2003-03-17 Completed Universit y of Conjugate, PCV13 00:00:00 [place] [facility] (Prevnar 13) Branch DTAP 2003-03-17 Completed University of 00:00:00 [facility] HIB 4 Dose Schedule 2003-03-17 Completed Unive rsity of 00:00:00 [facility] Pneumococcal 7 2003-03-17 Completed University of Conjugate, PCV7 00:00:00 [facility] ical (Prevnar7) Branch Polio (IPV/OPV) 2003-03-17 Completed Universit y of 00:00:00 [facility] Pneumococcal 13 2003-03-17 Completed Universit y of Conjugate, PCV13 00:00:00 [facility] dical (Prevnar 13) Branch DTAP 2003-03-17 Completed University of 00:00:00 [facility] HIB 4 Dose Schedule 2003-03-17 Completed Unive rsity of 00:00:00 [facility] Pneumococcal 7 2003-03-17 Completed University of Conjugate, PCV7 00:00:00 [facility] ical (Prevnar7) Branch Polio (IPV/OPV) 2003-03-17 Completed Universit y of 00:00:00 [facility] Pneumococcal 13 2003-03-17 Completed Universit y of Conjugate, PCV13 00:00:00 [facility] dical (Prevnar 13) Branch DTAP 2003-03-17 Completed University of 00:00:00 [facility] HIB 4 Dose Schedule 2003-03-17 Completed Unive rsity of 00:00:00 [facility] Pneumococcal 7 2003-03-17 Completed University of Conjugate, PCV7 00:00:00 [place] [facility] (Prevnar7) Branch Polio (IPV/OPV) 2003-03-17 Completed Universit y of 00:00:00 [facility] Pneumococcal 13 2003-03-17 Completed Universit y of Conjugate, PCV13 00:00:00 [place] [facility] (Prevnar 13) Branch DTAP 2003-03-17 Completed University of 00:00:00 [facility] HIB 4 Dose Schedule 2003-03-17 Completed Unive rsity of 00:00:00 [facility] Pneumococcal 7 2003-03-17 Completed University of Conjugate, PCV7 00:00:00 [place] [facility] (Prevnar7) Branch Polio (IPV/OPV) 2003-03-17 Completed Universit y of 00:00:00 [facility] Pneumococcal 13 2003-03-17 Completed Universit y of Conjugate, PCV13 00:00:00 [place] [facility] (Prevnar 13) Branch DTAP 2003-03-17 Completed University of 00:00:00 [facility] HIB 4 Dose Schedule 2003-03-17 Completed Unive rsity of 00:00:00 [facility] Pneumococcal 7 2003-03-17 Completed University of Conjugate, PCV7 00:00:00 [place] [facility] (Prevnar7) Branch Polio (IPV/OPV) 2003-03-17 Completed Universit y of 00:00:00 [facility] Pneumococcal 13 2003-03-17 Completed Universit y of Conjugate, PCV13 00:00:00 [facility] dical (Prevnar 13) Branch Pneumococcal 13 2003-03-17 Completed Universit y of Conjugate, PCV13 00:00:00 [place] [facility] (Prevnar 13) Branch DTAP 2003-03-17 Completed University of 00:00:00 [facility] HIB 4 Dose Schedule 2003-03-17 Completed Unive rsity of 00:00:00 [facility] Pneumococcal 7 2003-03-17 Completed University of Conjugate, PCV7 00:00:00 [place] [facility] (Prevnar7) Branch Polio (IPV/OPV) 2003-03-17 Completed Universit y of 00:00:00 [facility] Pneumococcal 13 2003-03-17 Completed Universit y of Conjugate, PCV13 00:00:00 [place] [facility] (Prevnar 13) Branch DTAP 2003-03-17 Completed University of 00:00:00 [facility] HIB 4 Dose Schedule 2003-03-17 Completed Unive rsity of 00:00:00 [facility] Pneumococcal 7 2003-03-17 Completed University of Conjugate, PCV7 00:00:00 [place] [facility] (Prevnar7) Branch Polio (IPV/OPV) 2003-03-17 Completed Universit y of 00:00:00 [facility] Pneumococcal 13 2003-03-17 Completed Universit y of Conjugate, PCV13 00:00:00 [place] [facility] (Prevnar 13) Branch DTAP 2003-03-17 Completed University of 00:00:00 [facility] HIB 4 Dose Schedule 2003-03-17 Completed Unive rsity of 00:00:00 [facility] Pneumococcal 7 2003-03-17 Completed University of Conjugate, PCV7 00:00:00 [place] [facility] (Prevnar7) Branch Polio (IPV/OPV) 2003-03-17 Completed Universit y of 00:00:00 [facility] Pneumococcal 13 2003-03-17 Completed Universit y of Conjugate, PCV13 00:00:00 [facility] dical (Prevnar 13) Branch DTAP 2003-03-17 Completed University of 00:00:00 [facility] HIB 4 Dose Schedule 2003-03-17 Completed Unive rsity of 00:00:00 [facility] Pneumococcal 7 2003-03-17 Completed University of Conjugate, PCV7 00:00:00 [facility] ical (Prevnar7) Branch Polio (IPV/OPV) 2003-03-17 Completed Universit y of 00:00:00 [facility] Hep B, Adol or Pedi 2003-01-13 Completed Unive rsity of Dosage 00:00:00 [facility] Pneumococcal 13 2003-01-13 Completed Universit y of Conjugate, PCV13 00:00:00 [facility] dical (Prevnar 13) Branch DTAP 2003-01-13 Completed University of 00:00:00 [facility] HIB 4 Dose Schedule 2003-01-13 Completed Unive rsity of 00:00:00 [facility] Hep B, Adol or Pedi 2003-01-13 Completed Unive rsity of Dosage 00:00:00 [facility] Pneumococcal 13 2003-01-13 Completed Universit y of Conjugate, PCV13 00:00:00 [place] [facility] (Prevnar 13) Branch DTAP 2003-01-13 Completed University of 00:00:00 [facility] DTAP 2003-01-13 Completed University of 00:00:00 [facility] HIB 4 Dose Schedule 2003-01-13 Completed Unive rsity of 00:00:00 [facility] Hep B, Adol or Pedi 2003-01-13 Completed Unive rsity of Dosage 00:00:00 [facility] Pneumococcal 13 2003-01-13 Completed Universit y of Conjugate, PCV13 00:00:00 [place] [facility] (Prevnar 13) Branch HIB 4 Dose Schedule 2003-01-13 Completed Unive rsity of 00:00:00 [facility] DTAP 2003-01-13 Completed University of 00:00:00 [facility] HIB 4 Dose Schedule 2003-01-13 Completed Unive rsity of 00:00:00 [facility] Hep B, Adol or Pedi 2003-01-13 Completed Unive rsity of Dosage 00:00:00 [facility] Pneumococcal 13 2003-01-13 Completed Universit y of Conjugate, PCV13 00:00:00 [facility] dical (Prevnar 13) Branch DTAP 2003-01-13 Completed University of 00:00:00 [facility] HIB 4 Dose Schedule 2003-01-13 Completed Unive rsity of 00:00:00 [facility] Hep B, Adol or Pedi 2003-01-13 Completed Unive rsity of Dosage 00:00:00 [facility] Hep B, Adol or Pedi 2003-01-13 Completed Unive rsity of Dosage 00:00:00 [facility] Pneumococcal 13 2003-01-13 Completed Universit y of Conjugate, PCV13 00:00:00 [facility] dical (Prevnar 13) Branch DTAP 2003-01-13 Completed University of 00:00:00 [facility] HIB 4 Dose Schedule 2003-01-13 Completed Unive rsity of 00:00:00 [facility] Hep B, Adol or Pedi 2003-01-13 Completed Unive rsity of Dosage 00:00:00 [facility] Pneumococcal 13 2003-01-13 Completed Universit y of Conjugate, PCV13 00:00:00 [facility] dical (Prevnar 13) Branch Pneumococcal 13 2003-01-13 Completed Universit y of Conjugate, PCV13 00:00:00 [place] [facility] (Prevnar 13) Branch DTAP 2003-01-13 Completed [facility] of 00:00:00 [facility] HIB 4 Dose Schedule 2003-01-13 Completed Unive rsity of 00:00:00 [facility] Hep B, Adol or Pedi 2003-01-13 Completed Unive rsity of Dosage 00:00:00 [facility] Pneumococcal 13 2003-01-13 Completed Universit y of Conjugate, PCV13 00:00:00 [place] [facility] (Prevnar 13) Branch DTAP 2003-01-13 Completed University of 00:00:00 [facility] HIB 4 Dose Schedule 2003-01-13 Completed Unive rsity of 00:00:00 [facility] Hep B, Adol or Pedi 2003-01-13 Completed Unive rsity of Dosage 00:00:00 [facility] Pneumococcal 13 2003-01-13 Completed Universit y of Conjugate, PCV13 00:00:00 [place] [facility] (Prevnar 13) Branch DTAP 2003-01-13 Completed University of 00:00:00 [facility] HIB 4 Dose Schedule 2003-01-13 Completed Unive rsity of 00:00:00 [facility] Hep B, Adol or Pedi 2003-01-13 Completed Unive rsity of Dosage 00:00:00 [facility] Pneumococcal 13 2003-01-13 Completed Universit y of Conjugate, PCV13 00:00:00 [facility] dical (Prevnar 13) Branch DTAP 2003-01-13 Completed University of 00:00:00 [facility] HIB 4 Dose Schedule 2003-01-13 Completed Unive rsity of 00:00:00 [facility] Hep B, Adol or Pedi 2003-01-13 Completed Unive rsity of Dosage 00:00:00 [facility] Pneumococcal 13 2003-01-13 Completed Universit y of Conjugate, PCV13 00:00:00 [facility] dical (Prevnar 13) Branch DTAP 2003-01-13 Completed University of 00:00:00 [facility] HIB 4 Dose Schedule 2003-01-13 Completed Unive rsity of 00:00:00 [facility] Hep B, Adol or Pedi 2002 Completed Unive rsity of Dosage 00:00:00 [facility] Hep B, Adol or Pedi 2002 Completed Unive rsity of Dosage 00:00:00 [facility] Hep B, Adol or Pedi 2002 Completed Unive rsity of Dosage 00:00:00 [facility] Hep B, Adol or Pedi 2002 Completed Unive rsity of Dosage 00:00:00 [facility] Hep B, Adol or Pedi 2002 Completed Unive rsity of Dosage 00:00:00 [facility] [place] [facility] Hep B, Adol or Pedi 2002 Completed Unive rsity of Dosage 00:00:00 [place] [facility] Hep B, Adol or Pedi 2002 Completed Unive rsity of Dosage 00:00:00 [place] [facility] Hep B, Adol or Pedi 2002 Completed Unive rsity of Dosage 00:00:00 [place] [facility] Hep B, Adol or Pedi 2002 Completed Unive rsity of Dosage 00:00:00 [place] [facility] Hep B, Adol or Pedi 2002 Completed Unive rsity of Dosage 00:00:00 [place] [facility] Hep B, Adol or Pedi 2002 Completed Unive rsity of Dosage 00:00:00 [facility] Vital Signs Vital Name Observation Time Observation Value Comments Source Systolic blood 2019-04-13 14:36:00 102 mm[Hg] Univer sity of pressure [facility] Diastolic blood 2019-04-13 14:36:00 67 mm[Hg] Unive rsity of pressure [facility] Heart rate 2019-04-13 14:36:00 80 /min [facility] Body temperature 2019-04-13 14:36:00 36.17 Cheli Univ ersity of [facility] Respiratory rate 2019-04-13 14:36:00 20 /min Univ ersity [facility] Body height 2019-04-13 14:36:00 [facility] Body weight 2019-04-13 14:36:00 67.042 kg [facility]i ty [facility] BMI 2019-04-13 14:36:00 20.52 kg/m2 [facility] Systolic blood 2019-04-13 14:36:00 102 mm[Hg] Univer sity of pressure [facility] Diastolic blood 2019-04-13 14:36:00 67 mm[Hg] Unive rsity of pressure [facility] Heart rate 2019-04-13 14:36:00 80 /min [facility] Body temperature 2019-04-13 14:36:00 36.17 Cheli Univ ersity of [facility] Respiratory rate 2019-04-13 14:36:00 20 /min Univ ersity of [facility] Body height 2019-04-13 14:36:00 180.8 cm [facility] Body weight 2019-04-13 14:36:00 67.042 kg [facility] BMI 2019-04-13 14:36:00 20.52 kg/m2 [facility] Procedures Procedure Date / Time Performed Performing Clinician Sourc e EXTERNAL PROVIDER 2021-05-12 06:01:00 Doctor Unassigned, No [facility] RECORDS Name Medical Branch ASSIGNMENT OF BENEFITS 2019-04-13 14:23:54 Doctor Unassigned, No [facility] Name Medical Branch MEDICAL 2018-09-30 05:01:00 Doctor Unassigned, No [facility] RELEASE/CLEARANCE Name [facility] [place] FORMS Encounters Start End Encounter Admission Attending Care Care Encounter Source Date/Time Date/Time Type Type Clinicians Facility Department ID 2021-05-12 2021-05-12 Orders Doctor DEL CID [id number] Univers 00:00:00 00:00:00 Only Unassigned, CK [id number] [facility] [place] [facility] [id number] Attil[place] as [id number] [facility] 009 Branch 2021-01-09 2021-01-09 Refill [facility] [id number] Univers 00:00:00 00:00:00 , Bobbi CRUZ [id number] it y [place] [facility] [place] [facility] [id number] [facility] [address] 2020-11-28 2020-11-28 Outpatient R LAIRD-MARTINEZ [facility] 653 [id number] Univers 16:10:00 16:10:00 , BOBBI dove of [facility] 2020-09-13 2020-09-13 [facility] [id number] Univers 09:10:00 09:10:00 , BOBBI dove of [facility] 2020-08-18 2020-08-18 Telephone [facility] 1.2.840.11 4 [id number] 00:00:00 00:00:00 , Bobbi Cruz [id number] Pediatric 4.2.7.2.686 Clinic [id number] [facility] 2020-08-18 2020-08-[address] [facility] 1.2.840.11 [id number] [facility] 00:00:00 00:00:00 , Bobbi Cruz 350.1.13.10 [place]7.2.[place] [facility] [phone] [address] 2020-03-14 2020-03-14 Outpatient R LAIRD-MARTINEZ [facility] [id number] Univers 13:30:00 13:30:00 , BOBBI lopezsaman [facility] 2020-03-07 2020-03-07 Outpatient R ABBY, [facility] [id number] Univers 14:40:00 14:40:00 DEMARCUS lopezsaman [facility] 2019-11-11 2019-11-11 Telephone [facility] 1.2.840.11 [id number] 00:00:00 00:00:00 , Bobbi Cruz [id number] Pediatric 4.2.7.2.686 Clinic [id number] [facility] 2019-11-11 2019-11-11 Telephone [facility] 1.2.840.11 4 [id number] Univers 00:00:00 00:00:00 , Bobbi Cruz 350.1.13.10 it y [place]2.7.2.686 [place] [facility] [id number] [address] 2019-04-13 2019-04-[address] [facility] 1.2.840.114 [id number] 08:26:32 08:53:36 Visit , Bobbi Cruz 350.1.13.10 Pediatric 4.2.7.2.686 Clinic [phone] [facility] 2019-04-13 2019-04-[address] [facility] 1.2.840.114 [id number] [facility] 08:26:32 08:53:36 Visit , Bobbi Cruz 350.1.13.10 it y [facility] 4[place]2.7.2.686 [place] [facility] [id number] [address] 2019-04-13 2019-04-13 Letter [facility] 1.2.840.114 [id number] 00:00:00 00:00:00 (Out) , Bobbi Cruz 350.1.13.10 Pediatric 4.2.7.2.686 Clinic [id number] [facility] 2019-04-13 2019-04-13 Orders Doctor MARIA EUGENIA 1.2.840.114 [id number] Univers 00:00:00 00:00:00 Only Unassigned, [place] 350.1.13.10 ity of [place] [facility] 4.2.7.2.686 Attila as [id number] [address] 2019-04-13 2019-04-13 Letter [facility] 1.2.840.114 [id number] Univers 00:00:00 00:00:00 (Out) , Bobbi Cruz 350.1.13.10 it y of [place] 4.2.7.2.686 [place] [facility] [id number] [address] 2018-10-16 2018-10-16 Telephone [facility] 1.2.840.11 4 [id number] Univers 00:00:00 00:00:00 , Bobbi Cruz 350.1.13.10 it y of Pediatric 4.2.7.2.686 [place] [facility] [id number] [address] 2018-09-30 2018-09-30 Orders Doctor MARIA EUGENIA 1.2.840.114 [id number] Univers 00:00:00 00:00:00 Only Unassigned, CK 350.1.13.10 ity of [place] [facility] 4.2.7.2.686 Attila as [id number] [address] 2018-09-30 2018-09-30 Telephone [facility] 1.2.840.11 4 [id number] Univers 00:00:00 00:00:00 , Bobib Cruz 350.1.13.10 it y of [place] 4.2.7.2.686 [place] [facility] [id number] [address] Results This patient has no known results.
[2022-07-04] MEDS ORDERED: LIDOCAINE 1% MPF 5 ML VIAL ONE (23:40)
[2022-07-04] MEDS ORDERED: HYDROCODONE/APAP 10/325 TAB ONE (23:51)
[2022-07-04] MEDS ORDERED: IBUPROFEN 400 MG TAB ONE (23:51)
--- NOTE | 2022-07-05 02:03 | ER ---
Nurse's Notes [facility] Name: Gino Lim Age: 21 yrs Sex: Male : 2000 Arrival Date: 07/04/2022 Time: 22:28 Bed Treatment Private MD: Diagnosis: Chest pain on breathing;Chest pain, unspecified Presentation: 07/04 22:57 Chief complaint: Patient states: "Last week I was here for a fall injury that hit my mb9 left rib area. They said nothing as broken but the medication I was prescribed hasn't helped. I was riding a mower at work and jumped and my left ribs started hurting real bad. I haven't been able to walk around real good and now it's swollen with a lump. It hurts to cough, laugh, or any type of tensing. It hurts to breathe in". Coronavirus screen: At this time, the client does not indicate any symptoms associated with coronavirus-19. Ebola Screen: No symptoms or risks identified at this time. Initial Sepsis Screen: Does the patient meet any 2 criteria? No. Patient's initial sepsis screen is negative. Does the patient have a suspected source of infection? No. Patient's initial sepsis screen is negative. Risk Assessment: Do you want to hurt yourself or someone else? Patient reports no desire to harm self or others. Onset of symptoms was July 04, 2022. 22:57 Method Of Arrival: Ambulatory 9 22:57 Acuity: IRA 4 mb9 Triage Assessment: 23:02 General: Appears uncomfortable, Behavior is calm, cooperative. Pain: Complains of pain mb9 in left rib Pain currently is 5 out of 10 on a pain scale. Pain began suddenly, Aggravated by inhalation. Neuro: Level of Consciousness is awake, alert, obeys commands, Oriented to person, place, time, situation, Appropriate for age. Cardiovascular: Patient's skin is warm and dry. Respiratory: Airway is patent Respiratory effort is even, unlabored, Respiratory pattern is regular, symmetrical. Derm: Skin is pink, warm \\T\\ dry. Musculoskeletal: Range of motion: intact in all extremities. Historical: - Allergies: 23:00 No Known Allergies; mb9 - Home Meds: 23:[address] [Active]; mb9 - PMHx: 23:00 None; mb9 - PSHx: 23:00 None; mb9 - Immunization history:: Adult Immunizations up to date. - Social history:: Smoking status: Patient reports the use of cigarette tobacco products, smokes one-half pack cigarettes per day. Screenin/04 00:35 [facility] ED Fall Risk Assessment (Adult) History of falling in the last 3 months, kl including since admission Yes- single mechanical fall (1 pt) Confusion or Disorientation No (0 pts) Intoxicated or Sedated No (0 pts) Impaired Gait No (0 pts) Mobility Assist Device Used No (0 pt) Altered Elimination No (0 pt) Score/Fall Risk Level 0 - 2 = Low Risk Oriented to surroundings, Maintained a safe environment. Abuse screen: Denies threats or abuse. Nutritional screening: No deficits noted. Tuberculosis screening: No symptoms or risk factors identified. Assessment: 07/04 23:03 Reassessment: see triage assessment. [facility] 07/05 00:35 Reassessment: Patient appears in no apparent distress at this time. Patient and/or kl family updated on plan of care and expected duration. Pain level reassessed. Patient is alert, oriented x 3, equal unlabored respirations, skin warm/dry/pink. Patient states feeling better. Patient states symptoms have improved. Vital Signs: 07/04 22:57 BP 112 / 78; Pulse 74; Resp 18; Temp 97.9(O); Pulse Ox 100% on R/A; Weight 61.23 kg; 9 Height 5 ft. 4 in. ; Pain 5/10; 07/05 02:11 BP 122 / 60; Pulse 74; Resp 18; Temp 97.3(TE); Pulse Ox 99% on R/A; kl 07/04 22:57 Body Mass Index 23.17 (61.23 kg, 162.56 cm) [facility] 07/04 22:57 Pain Scale: Adult [facility] ED Course: 07/04 22:34 Patient arrived in ED. ag3 23:00 Triage completed. 9 23:02 Nadeem Cantu MD is Attending Physician. kdr 23:02 Arm band placed on. 9 07/05 00:23 CXR XRAY In Process Unspecified. EDMS 00:23 Ribs Left XRAY In Process Unspecified. EDMS 00:36 Patient has correct armband on for positive identification. Bed in low position. Call light in reach. Side rails up X2. 02:11 No provider procedures requiring assistance completed. Patient did not have IV access kl during this emergency room visit. Administered Medications: 07/04 23:48 Drug: [place] PO 10 mg-325 mg 1 tabs Route: PO; cg 23:48 Drug: Ibuprofen PO 800 mg Route: PO; cg Outcome: 07/05 02:03 Discharge ordered by . kdr 02:11 Discharged to home ambulatory. kl 02:11 Condition: improved 02:11 Discharge instructions given to patient, Instructed on discharge instructions, follow up and referral plans. medication usage, Demonstrated understanding of instructions, follow-up care, medications, Prescriptions given X 3. 02:11 Patient left the ED. Signatures: Dispatcher [employer] EDMS Radha Lee, RN Nadeem Dominguez MD MD kdr Garcia, Cindy, RN RN cg Gomez, Alice ag3 Breneman, Mary Beth, RN RN mb9
--- NOTE | 2022-07-05 02:03 | EDPHYS ---
Physician Documentation [facility] Name: Gino Lim Age: 21 yrs Sex: Male : 2000 Arrival Date: 07/04/2022 Time: 22:28 Bed Treatment Private MD: ED Physician Nadeem Cantu HPI: 07/04 23:54 This 21 yrs old Male presents to ER via Ambulatory with complaints of RIB PAIN.kdr 23:54 Wall painPatient was seen here about a week ago for the same problem. At that time he kdr had a skateboarding accident landing on his left side which resulted in left lateral. An x-ray was done at the time and no specific fracture or other issue was identified. Patient was discharged on diclofenac and for the most part had any recovery that was uneventful until at work he had another injury riding a tractor. Since then he has had more pain in that left lateral infracostal area with any movement coughing or deep breathing. Patient otherwise is nonacute denies any emergent circumstance.. Onset: The symptoms/episode began/occurred last week. Severity of symptoms: At their worst the symptoms were mild in the emergency department the symptoms are unchanged. The patient has not experienced similar symptoms in the past. The patient has been recently seen by a physician: The patient has been recently seen at the [facility] Emergency Department, last week. Historical: - Allergies: 23:00 No Known Allergies; mb9 - Home Meds: 23:[address] [Active]; mb9 - PMHx: 23:00 None; mb9 - PSHx: 23:00 None; mb9 - Immunization history:: Adult Immunizations up to date. - Social history:: Smoking status: Patient reports the use of cigarette tobacco products, smokes one-half pack cigarettes per day. ROS: 23:54 Constitutional: Negative for fever, chills, and weight loss, Eyes: Negative for injury, kdr pain, redness, and discharge, ENT: Negative for injury, pain, and discharge, Neck: Negative for injury, pain, and swelling, Respiratory: Negative for shortness of breath, cough, wheezing, and pleuritic chest pain, Abdomen/GI: Negative for abdominal pain, nausea, vomiting, diarrhea, and constipation, Back: Negative for injury and pain, : Negative for injury, bleeding, discharge, and swelling, MS/Extremity: Negative for injury and deformity, Skin: Negative for injury, rash, and discoloration, Neuro: Negative for headache, weakness, numbness, tingling, and seizure activity. Psych: Negative for depression, anxiety, suicide ideation, homicidal ideation, and hallucinations, Allergy/Immunology: Negative for hives, rash, and allergies, Endocrine: Negative for neck swelling, polydipsia, polyuria, polyphagia, and marked weight changes, Hematologic/Lymphatic: Negative for swollen nodes, abnormal bleeding, and unusual bruising. 23:54 Cardiovascular: Positive for chest pain, with cough, with movement, of the anterior aspect of left lateral abdomen and posterior aspect of left lateral abdomen. Exam: 23:54 Constitutional: This is a well developed, well nourished patient who is awake, alert, kdr and in no acute distress. Head/Face: Normocephalic, atraumatic. Eyes: Pupils equal round and reactive to light, extra-ocular motions intact. Lids and lashes normal. Conjunctiva and sclera are non-icteric and not injected. Cornea within normal limits. Periorbital areas with no swelling, redness, or edema. Neck: Trachea midline, no thyromegaly or masses palpated, and no cervical lymphadenopathy. Supple, full range of motion without nuchal rigidity, or vertebral point tenderness. No Meningismus. Cardiovascular: Regular rate and rhythm with a normal S1 and S2. No gallops, murmurs, or rubs. Normal PMI, no JVD. No pulse deficits. Respiratory: Lungs have equal breath sounds bilaterally, clear to auscultation and percussion. No rales, rhonchi or wheezes noted. No increased work of breathing, no retractions or nasal flaring. Abdomen/GI: Soft, non-tender, with normal bowel sounds. No distension or tympany. No guarding or rebound. No evidence of tenderness throughout. Back: No spinal tenderness. No costovertebral tenderness. Full range of motion. Skin: Warm, dry with normal turgor. Normal color with no rashes, no lesions, and no evidence of cellulitis. MS/ Extremity: Pulses equal, no cyanosis. Neurovascular intact. Full, normal range of motion. Neuro: Awake and alert, GCS 15, oriented to person, place, time, and situation. Cranial nerves II-XII grossly intact. Motor strength 5/5 in all extremities. Sensory grossly intact. Cerebellar exam normal. Normal gait. Psych: Awake, alert, with orientation to person, place and time. Behavior, mood, and affect are within normal limits. 23:54 Chest/axilla: Inspection: normal, Palpation: crepitus, is not appreciated, tenderness, that is mild, of the left lateral anterior chest. Vital Signs: 22:57 BP 112 / 78; Pulse 74; Resp 18; Temp 97.9(O); Pulse Ox 100% on R/A; Weight 61.23 kg; mb9 Height 5 ft. 4 in. ; Pain /; 07/05 02:11 BP 122 / 60; Pulse 74; Resp 18; Temp 97.3(TE); Pulse Ox 99% on R/A; kl 07/04 22:57 Body Mass Index 23.17 (61.23 kg, 162.56 cm) mb9 07/04 22:57 Pain Scale: Adult mb9 MDM: 07/04 23:54 Data reviewed: vital signs, nurses notes, lab test result(s), radiologic studies. kdr 07/05 02:03 Patient medically screened. kdr 07/04 23:35 Order name: CXR XRAY kdr 07/04 23:35 Order name: Ribs Left XRAY kdr Administered Medications: 07/04 23:48 Drug: [place] PO 10 mg-325 mg 1 tabs Route: PO; cg 23:48 Drug: Ibuprofen PO 800 mg Route: PO; cg Disposition Summary: 07/05/22 02:03 Discharge Ordered Location: Home kdr Problem: an ongoing problem kdr Symptoms: have improved kdr Condition: Stable kdr Diagnosis - Chest pain on breathing kdr - Chest pain, unspecified kdr Followup: kdr - With: Private Physician - When: 2 - 3 days - Reason: If symptoms return, Further diagnostic work-up, Recheck today's complaints, Continuance of care, Re-evaluation by your physician Discharge Instructions: - Discharge Summary Sheet kdr - Rib Contusion kdr - Chest Wall Pain, [id number] kdr Forms: - Work release form kl - Medication Reconciliation Form kdr - Thank You Letter kdr - Prescription Opioid Use kdr Prescriptions: - Ibuprofen 600 mg Oral Tablet - take 1 tablet by ORAL route every 6 hours As needed take with food; 15 tablet; kdr Refills: 0, Product Selection Permitted - Tramadol 50 mg Oral Tablet - take 1 tablet by ORAL route every 8 hours as needed; 12 tablet; Refills: 0, kdr Product Selection Permitted - Medrol (Jose) 4 mg Oral Tablets, Dose Pack - take 1 tablet by ORAL route as directed - follow package instructions; 1 kdr packet; Refills: 0, Product Selection Permitted Signatures: Dispeverardoer [employer] Nadeem Newell MD MD kdr Garcia, Cindy RN RN Selena Neville RN RN mb9
[2022-07-05 02:40] VITALS: BP 122/60; TEMP 97.3; O2SAT 99
--- NOTE | 2022-07-05 13:57 | RAD REPORT ---
EXAM DESCRIPTION: RAD - Ribs Left - 07/05/2022 12:22 am CLINICAL HISTORY: PAIN TECHNIQUE: Frontal and oblique views of the left ribs. COMPARISON: No relevant prior studies available. FINDINGS: Lungs: Unremarkable as visualized. No consolidation. Pleural space: Unremarkable. No pneumothorax. Bones/joints: Unremarkable. No acute fracture. IMPRESSION: No acute injury. Electronically signed by: Wu Jackson MD 07/05/2022 1:56 AM CDT Due to temporary technical issues with the PACS/Fluency reporting system, reports are being signed by the in house radiologists without review as a courtesy to insure prompt reporting. The interpreting radiologist is fully responsible for the content of the report.
--- NOTE | 2022-07-05 14:09 | RAD REPORT ---
EXAM DESCRIPTION: RAD - Chest Single View - 07/05/2022 12:22 am CLINICAL HISTORY: The patient is 21 years old and is Male; CHEST PAIN TECHNIQUE: Frontal view of the chest. COMPARISON: No relevant prior studies available. FINDINGS: Lungs: Unremarkable. No consolidation. Pleural space: Unremarkable. No pneumothorax. Heart: Unremarkable. Mediastinum: Unremarkable. Bones/joints: Unremarkable. IMPRESSION: No acute findings in the chest. Electronically signed by: Vijay Barnes MD 07/05/2022 12:40 AM CDT Due to temporary technical issues with the PACS/Fluency reporting system, reports are being signed by the in house radiologists without review as a courtesy to insure prompt reporting. The interpreting radiologist is fully responsible for the content of the report.
== END 2022-07-05 02:11 | disposition home or self-care (01) ==
LOC: ER 22:28
DX: R07.1 Chest pain on breathing (principal)
CPT/HCPCS: 71045; 71100; 99284; J2001

== ENCOUNTER 2024-06-23 20:10 | Inpatient (IN) | payer SELFPAY ==
--- OUTSIDE RECORDS SUMMARY | 2024-06-23 20:13 | XMS REPORT | Continuity of Care Document ---
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 Allergies, Adverse Reactions, Alerts Allergy Name Allergy Type Status Severity Reaction(s) Onset Date Inactive Date Treating Clinician Comments Source NO KNOWN ALLERGIE S Drug Class Active [facility] Social History Social Habit Start Date Stop Date Quantity Comments Source Tobacco use and exposure 2017-07-11 00:00:00 2017-07-11 00:00:00 Never used [facility] Sex Assigned At 2000 00:00:00 2000 00:00:00 [facility] Smoking Status Start Date Stop Date Source Never smoker [facility] Medications Ordered Medication Name Filled Medication Name Start Date Stop Date Current Medication? Ordering Clinician Indication Dosage Frequency Signature (SIG) Comments Components Source spinosad (NATROBA) 0.9 % suspension 2020-03 00:00: 00 Yes [id number] APPLY TO DRY HAIR, COMPLETELY SATURATE. LET SIT 10 MINUTES, THEN WASH HAIR. REMOVE NITS [facility] spinosad (NATROBA) 0.9 % suspension 11-10 00:00: 00 01-10 00:00 :00 No [id number] Apply to dry hair, completely saturate. Let sit 10 minutes, then wash hair. Remove nits [facility] ketoconazol e 2 % shampoo 04-13 00:00: 00 Yes [id number] Apply, lather area, leave 5 to 10 minutes and rinse. Can use Daily [facility] ketoconazol e 2 % cream 04-13 00:00: 00 Yes [id number] Apply to area(s) daily. [facility] sulfamethox azole-trime thoprim (BACTRIM DS) 800-160 mg per tablet 04-13 00:00: 00 Yes [id number] 1{tbl} Take 1 tablet by mouth 2 (two) times daily. [facility] amoxicillin 500 mg capsule 03-10 00:00: 00 04-13 00:00 :00 No TAKE 1 CAPSULE BY MOUTH 3 TIMES A DAY UNTILL ALL GONE [facility] DENTA 5000 PLUS 1.1 % Crea 03-10 00:00: 00 04-13 00:00 :00 No USE 2 TIMES A DAY ONCE IN THE MORNING AND ONCE AT NIGHT DO NOT DRINK FOR AT LEAST 30 MINUTES [facility] spinosad (NATROBA) 0.9 % suspension 10-16 00:00: 00 10-17 04:59 :00 No [id number] Apply to area(s) once now for 1 dose. [facility] tretinoin 0.1 % cream 07-11 00:00: 00 Yes Apply to area(s) at bedtime. [facility] Vital Signs Vital Name Observation Time Observation Value Comments S ource BMI 2019-04-13 14:36:00 20.52 kg/m2 [facility] Systolic blood pressure 2019-04-13 14:36:00 102 mm[Hg] [facility] Diastolic blood pressure 2019-04-13 14:36:00 67 mm[Hg] [facility] Heart rate 2019-04-13 14:36:00 80 /min Unive [facility] Body temperature 2019-04-13 14:36:00 36.17 Cheli [facility] Respiratory rate 2019-04-13 14:36:00 20 /min [facility] Body height 2019-04-13 14:36:00 180.8 cm [facility] Body weight 2019-04-13 14:36:00 67.042 kg [facility] BMI 2019-04-13 14:36:00 20.52 kg/m2 [facility] Systolic blood pressure 2019-04-13 14:36:00 102 mm[Hg] [facility] Diastolic blood pressure 2019-04-13 14:36:00 67 mm[Hg] [facility] Heart rate 2019-04-13 14:36:00 80 /min Unive [facility] Body temperature 2019-04-13 14:36:00 36.17 Cheli [facility] Respiratory rate 2019-04-13 14:36:00 20 /min [facility] Body height 2019-04-13 14:36:00 180.8 cm [facility] Body weight 2019-04-13 14:36:00 67.042 kg [facility] Procedures Procedure Date / Time Performed Performing Clinicia n Source EXTERNAL PROVIDER RECORDS 2021-05-12 06:01:00 Doctor Unassigned, Gwinner [facility] ASSIGNMENT OF BENEFITS 2019-04-13 14:23:54 Docto r Unassigned, Gwinner [facility] MEDICAL RELEASE/CLEARANCE FORMS 2018-09-30 05:01:00 Doctor Unassigned, Gwinner [facility] Encounters Start Date/Time End Date/Time Encounter Type Admission Type Attending Clinicians Care Facility Care Department Encounter ID Source 2021-05-12 00:00:00 2021-05-12 00:00:00 Orders Only Doctor Unassigned, Gwinner [facility] [id number] [facility] 2021-01-09 00:00:00 2021-01-09 00:00:00 Bobbi Coto [facility] [id number] [id number] 225 [id number] [facility] 2020-11-28 16:10:00 2020-11-28 16:10:00 Outpatient BOBBI CORTES [facility] [id number] [facility] 2020-09-13 09:10:00 2020-09-13 09:10:00 Outpatient BOBBI CORTES [facility] [id number] [facility] 2020-08-18 00:00:00 2020-08-18 00:00:00 Bobbi Ross [facility] [id number] 225 [id number] 2020-08-18 00:00:00 2020-08-18 00:00:00 Telephone Bobbi Hillman [facility] [id number] [id number] 225 [id number] [facility] 2020-03-14 13:30:00 2020-03-14 13:30:00 Outpatient BOBBI CORTES [facility] [id number] [facility] 2020-03-07 14:40:00 2020-03-07 14:40:00 Outpatient DEMARCUS JOSEPH [facility] [id number] [facility] 2019-11-11 00:00:00 2019-11-11 00:00:00 Telephone Bobbi Hillman [facility] [id number] [id number] 2019-11-11 00:00:00 2019-11-11 00:00:00 Telephone Kady Bobbi Jacquelyn [facility] [id number] [id number] [id number] [id number] 225 [id number] [facility] 2019-04-13 08:26:32 2019-04-13 08:53:36 Office Visit Kady Bobbi Jacquelyn [facility] [id number] [id number] 4.2.7.2.686 [id number] 225 [id number] 2019-04-13 08:26:32 2019-04-13 08:53:36 Office Visit oBbbi Hillman [facility] [id number] 350.1.13.10 4.2.7.2.686 [id number] 225 [id number] [facility] 2019-04-13 00:00:00 2019-04-13 00:00:00 Letter (Out) Bobbi Hillman [facility] [id number] 350.1.13.10 4.2.7.2.686 [id number] 225 [id number] 2019-04-13 00:00:00 2019-04-13 00:00:00 Orders Only Doctor Unassigned, Gwinner [facility] [id number] 350.1.13.10 [id number] [facility] 2019-04-13 00:00:00 2019-04-13 00:00:00 Letter (Out) Bobbi Hillman [facility] [id number] 350.1.13.10 4.2.7.2.686 [id number] 225 [id number] [facility] 2018-10-16 00:00:00 2018-10-16 00:00:00 Telephone Bobbi Hillman [facility] [id number] 350.1.13.10 4.2.7.2.686 [id number] 225 [id number] [facility] 2018-09-30 00:00:00 2018-09-30 00:00:00 Orders Only Doctor Unassigned, Gwinner [facility] [id number] 350.1.13.10 4.2.7.2.686 [id number] [facility] 2018-09-30 00:00:00 2018-09-30 00:00:00 Telephone Bobbi Hillman [facility] [id number] 350.1.13.10 4.2.7.2.686 [id number] 225 [id number] [facility]
[2024-06-23] MEDS ORDERED: NA CHLORIDE 0.9% 1,000 ML ONE ×3 (20:27→23:14)
[2024-06-23 20:56] LABS: Anion Gap 14.6 mEq/L (5.0-15.0); Potassium 3.6 mEq/L (3.5-5.1)
[2024-06-23 21:00] LABS: Absolute Basophils 0.1 K/uL (0-0.5); Absolute Lymphocytes (CBC) 1.4 K/uL (0.7-4.9); Absolute Monocytes 1.4 K/uL (0.1-1.3); Absolute Neutrophil 10.8 K/uL (1.8-8.0); Basophils % 0.5 % (0-1.3); Eosinophils % 0.1 % (0-4.4); Hematocrit 47.1 % (39.6-49.0); Hemoglobin 16.3 g/dL (13.6-17.9); Lymphocytes % 9.9 % (15.3-44.8); MCH 30.6 pg (27.0-35.0); MCHC 34.7 g/dL (32.0-36.0); MCV 88.3 fL (80-100); MPV 7.6 fL (7.6-11.3); Monocytes % 10.5 % (3.3-12.3); Nucleated Red Blood Cells % 0.3 % (0-0); Platelets 316 thou/uL (152-406); RBC Red Blood Cell Count 5.33 M/uL (4.33-5.43); Red Cell Distribution Width 13.7 % (12.1-15.2)
--- NOTE | 2024-06-23 21:22 | EDPHYS ---
Physician Documentation [facility] Name: Gino Lim Age: 23 yrs Sex: Male : 2000 Arrival Date: 06/23/2024 Time: 20:10 Bed 24 Private MD: ED Physician Belinda Gregorio HPI: 06/23 21:41 This 23 yrs old Male presents to ER via Ambulatory with complaints of Nausea, kb Muscle Cramps, Chills. 21:41 Patient is a 23-year-old male who presents for muscle cramps that started today and kb have gotten progressively worse. States he started a new job today and was working strenuously outside in the heat. Denies nausea, vomiting, fever. Historical: - Allergies: 20:18 No Known Allergies; cm10 - Home Meds: 20:18 None [Active]; cm10 - PMHx: 20:18 None; cm10 - PSHx: 20:18 None; cm10 - Immunization history:: Adult Immunizations unknown. - Infectious Disease History:: Denies. - Social history:: Smoking status: Reported history of juuling and/or vaping. Patient uses alcohol, on a daily basis. ROS: 21:21 Constitutional: As per HPI kb Exam: 21:21 Constitutional: This is a well developed, well nourished patient who is awake, alert, kb and in no acute distress. Head/Face: Normocephalic, atraumatic. ENT: Moist Mucous membranes Cardiovascular: Regular rate Respiratory: Respirations even and unlabored. No increased work of breathing. Talking in full sentences Abdomen/GI: Soft, non-tender. No distention Skin: Warm, dry with normal turgor. Normal color. MS/ Extremity: Pulses equal, no cyanosis. Neurovascular intact. Full, normal range of motion. Neuro: Awake and alert, GCS 15, oriented to person, place, time, and situation. 21:21 ECG was reviewed by the Attending Physician. Vital Signs: 20:19 BP 141 / 85; Pulse 102; Resp 18; Temp 98.3; Pulse Ox 99% on R/A; Weight 81.65 kg; cm10 Height 6 ft. 0 in. ; Pain 9/10; 21:16 BP 125 / 85; Pulse 85; Resp 18; Pulse Ox 99% ; vc1 20:19 Body Mass Index 24.41 (81.65 kg, 182.88 cm) cm10 20:19 Pain Scale: Adult cm10 MDM: 20:11 Medical Screening Exam initiated kb 21:41 Differential diagnosis: Abnormal electrolytes, rhabdomyolysis, acute renal failure, kb dehydration. Data reviewed: vital signs, nurses notes. Consideration of Admission/Observation Patient was admitted/placed on observation. Escalation of care including admission/observation considered. Management of patient was discussed with the following: Hospitalist: Dr Diaz accepts pt for admission. Historians other than the Patient: Spouse/Significant Other: Significant other. Counseling: I had a detailed discussion with the patient and/or guardian regarding the historical points, exam findings, and any diagnostic results supporting the discharge/admit diagnosis, lab results, the need for further work-up and treatment in the hospital. 06/23 20:23 Order name: CBC with Diff; Complete Time: 21:13 kb 06/23 20:23 Order name: BMP; Complete Time: 20:58 kb 06/23 20:23 Order name: CPK; Complete Time: 20:58 kb 06/23 22:53 Order name: Liver (Hepatic) Function EDNC 06/23 22:53 Order name: Urinalysis w/ reflexes EDNC 06/23 22:54 Order name: CBC with Automated Diff EDNC 06/23 22:54 Order name: CBC with Automated Diff EDNC 06/23 22:54 Order name: Comprehensive Metabolic Panel [facility] 06/23 22:54 Order name: Comprehensive Metabolic Panel [facility] 06/23 22:54 Order name: Creatine Phosphokinase [facility] 06/23 22:54 Order name: Creatine Phosphokinase [facility] 06/23 22:54 Order name: Creatine Phosphokinase [facility] 06/23 22:54 Order name: Creatine Phosphokinase [facility] 06/23 20:23 Order name: IV Start; Complete Time: 20:34 kb 06/23 21:00 Order name: EKG - Nurse/Tech; Complete Time: 21:16 kb EC:21 Rate is 81 beats/min. Rhythm is regular. QRS [place] is Normal. DC interval is normal at kb 128 msec. QRS interval is normal at 98 msec. QT interval is normal at 441 msec. Administered Medications: 20:34 Drug: NS 0.9% IV 1000 ml IV at 1000 ml once; to be given as a bolus over 60 minutes vc1 Route: IV; Rate: 1000 ml; Site: right antecubital; 21:27 Follow up: IV Status: Completed infusion; IV Intake: 1000ml vc1 : Drug: NS 0.9% IV 1000 ml IV at 1000 ml once; to be given as a bolus over 60 minutes vc1 Route: IV; Rate: 1000 ml; Site: right antecubital; 22:40 Follow up: IV Status: Completed infusion; IV Intake: 1000ml vc1 Disposition Summary: 06/23/24 21:21 Hospitalization Ordered Notes: Hospitalization Status: Observation kb Provider: Jacky Diaz Condition: Stable kb Problem: new kb Symptoms: are unchanged kb Bed/Room Type: Standard kb Location: [facility] ER HOLD(06/23/24 22:40) vc1 Room Assignment: ERHOLD-(06/23/24 22:40) vc1 Diagnosis - Acute kidney failure, unspecified kb - Rhabdomyolysis kb Forms: - Medication Reconciliation Form kb - SBAR form kb - Leadership Thank You Letter kb Critical care time excluding procedures: 21:21 Critical care time: Bedside Care: 10 minutes, Consultation: 10 minutes, Family kb Intervention: 10 minutes. Total time: 30 minutes Signatures: Dispatcher [employer] EDMS Snow Cruz, GIG TENDER-C GIG TENDER-Ckb Audra Forman, RN RN vc1 Rosa Ding, RN RN cm10 Corrections: (The following items were deleted from the chart) 20:23 20:23 CBC+H.LAB.BRZ ordered. EDMS EDMS 20:23 20:23 BASIC METABOLIC PANEL+C.LAB.BRZ ordered. EDMS EDMS 20:23 20:23 CREATINE PHOSPHOKINASE+C.LAB.BRZ ordered. EDMS EDMS 22:40 21:21 Telemetry/MedSurg (observation) kb vc1 22:40 21:21 kb vc1
--- NOTE | 2024-06-23 21:22 | ER ---
Nurse's Notes [facility] Name: Gino Lim Age: 23 yrs Sex: Male : 2000 Arrival Date: 06/23/2024 Time: 20:10 Bed 24 Private MD: Diagnosis: Acute kidney failure, unspecified;Rhabdomyolysis Presentation: 06/23 20:19 Chief complaint: Patient states: All over body cramping onset today. Pt states that he cm10 was at work when this started. Coronavirus screen: Client denies travel out of the [place] in the last 14 days. Ebola Screen: Patient denies travel to an Ebola-affected area in the 21 days before illness onset. Initial Sepsis Screen: Does the patient meet any 2 criteria? HR > 90 bpm. No. Patient's initial sepsis screen is negative. Does the patient have a suspected source of infection? No. Patient's initial sepsis screen is negative. Risk Assessment: Do you want to hurt yourself or someone else? Patient reports no desire to harm self or others. Onset of symptoms was June 23, 2024. 20:19 Method Of Arrival: Ambulatory cm10 20:19 Acuity: IRA 3 cm10 Triage Assessment: 20:20 General: Appears in no apparent distress. uncomfortable, Behavior is calm, cooperative. cm10 Pain: Complains of pain in back, right lateral anterior chest, left lateral anterior chest, right arm, left arm, right leg and left leg. Pain: Pain currently is 0 out of 10 on a pain scale. at worst was 9 out of 10 on a pain scale. Quality of pain is described as crampy. Neuro: No deficits noted. Level of Consciousness is awake, alert, obeys commands. Respiratory: No deficits noted. Airway is patent Respiratory effort is even, unlabored, Respiratory pattern is regular, symmetrical. Historical: - Allergies: 20:18 No Known Allergies; cm10 - Home Meds: 20:18 None [Active]; cm10 - PMHx: 20:18 None; cm10 - PSHx: 20:18 None; cm10 - Immunization history:: Adult Immunizations unknown. - Infectious Disease History:: Denies. - Social history:: Smoking status: Reported history of juuling and/or vaping. Patient uses alcohol, on a daily basis. Screenin:[facility] ED Fall Risk Assessment (Adult) History of falling in the last 3 months, vc1 including since admission No falls in past 3 months (0 pts) Confusion or Disorientation No (0 pts) Intoxicated or Sedated No (0 pts) Impaired Gait No (0 pts) Mobility Assist Device Used No (0 pt) Altered Elimination Yes (1 pt) Score/Fall Risk Level 0 - 2 = Low Risk Oriented to surroundings, Maintained a safe environment, Educated pt \T\ family on fall prevention, incl call for assistance when getting out of bed, Hourly rounding (assess needs \T\ fall precautionary measures) done. Abuse screen: Denies threats or abuse. Nutritional screening: No deficits noted. Tuberculosis screening: No symptoms or risk factors identified. Assessment: 20:36 General: Appears in no apparent distress. comfortable, slender, well groomed, Behavior vc1 is calm, cooperative, appropriate for age. General: Reports chills for. Pain: Complains of pain in left leg and right leg and left arm and right arm and back and left lateral anterior chest and right lateral anterior chest Pain does not radiate. Neuro: Level of Consciousness is awake, alert, obeys commands, Oriented to person, place, time, situation, Appropriate for age. Cardiovascular: Heart tones S1 S2 present Capillary refill < 3 seconds Patient's skin is warm and dry. Respiratory: Airway is patent Respiratory effort is even, unlabored, Respiratory pattern is symmetrical, agonal. GI: Abdomen is flat, non-distended, Bowel sounds present X 4 quads. Reports cramping, nausea. : No deficits noted. No signs and/or symptoms were reported regarding the genitourinary system. EENT: No deficits noted. No signs and/or symptoms were reported regarding the EENT system. Derm: Skin is intact, is healthy with good turgor, Skin is dry, Skin is normal, Skin temperature is warm. Musculoskeletal: Circulation, motion, and sensation intact. Range of motion: intact in all extremities, Reports muscle cramps. 21:17 Reassessment: Patient appears in no apparent distress at this time. No changes from vc1 previously documented assessment. Patient and/or family updated on plan of care and expected duration. Pain level reassessed. Vital Signs: 20:19 BP 141 / 85; Pulse 102; Resp 18; Temp 98.3; Pulse Ox 99% on R/A; Weight 81.65 kg; cm10 Height 6 ft. 0 in. ; Pain 9/10; 21:16 BP 125 / 85; Pulse 85; Resp 18; Pulse Ox 99% ; vc1 20:19 Body Mass Index 24.41 (81.65 kg, 182.88 cm) cm10 20:19 Pain Scale: Adult cm10 ED Course: 20:11 Patient arrived in ED. [email or web address] 20:11 Snow Cruz FNP-C is PHCP. kb 20:11 Natanael Dupont MD is Attending Physician. kb 20:11 Snow Cruz FNP-C is PHCP. kb 20:11 Belinda Gregorio MD is Attending Physician. kb 20:15 Snow Cruz FNP-C is PHCP. kb 20:15 Belinda Gregorio MD is Attending Physician. kb 20:20 Triage completed. cm10 20:20 Arm band placed on right wrist. Patient placed in an exam room. cm10 20:34 Audra Forman, RONNY is Primary Nurse. vc1 20:34 Inserted saline lock: 20 gauge in right antecubital area, using aseptic technique. vc1 ,using aseptic technique. by Apolinar electrical design technologist Blood collected. Flushed with 10 mL NS. 20:35 Patient has correct armband on for positive identification. Bed in low position. Call vc1 light in reach. Provided Education on: plan of care. Pulse ox on. NIBP on. 20:37 CPK Sent. vc1 20:38 BMP Sent. vc1 20:38 CBC with Diff Sent. vc1 21:17 No provider procedures requiring assistance completed. vc1 21:20 Jacky Diaz MD is Hospitalizing Provider. kb 22:39 Patient admitted, IV remains in place. vc1 Administered Medications: 20:34 Drug: NS 0.9% IV 1000 ml IV at 1000 ml once; to be given as a bolus over 60 minutes vc1 Route: IV; Rate: 1000 ml; Site: right antecubital; 21:27 Follow up: IV Status: Completed infusion; IV Intake: 1000ml vc1 21:27 Drug: NS 0.9% IV 1000 ml IV at 1000 ml once; to be given as a bolus over 60 minutes vc1 Route: IV; Rate: 1000 ml; Site: right antecubital; 22:40 Follow up: IV Status: Completed infusion; IV Intake: 1000ml vc1 Medication: 20:36 VIS not applicable for this client. vc1 Intake: 21:27 IV: 1000ml; Total: 1000ml. vc1 22:40 IV: 1000ml; Total: 2000ml. vc1 Outcome: 21:21 Decision to Hospitalize by Provider. kb 22:39 Admitted to ER Hold. Please see [facility] for further documentation. vc1 22:39 Condition: stable 22:39 Instructed on the need for admit, 06/24 05:24 Patient left the ED. hb Signatures: Snow Cruz, DRIER OPERATOR HEAD-C DRIER OPERATOR HEAD-Ckb Nola Martines RN RN Chasidy Allen [email or web address] Audra Forman RN RN vc1 Rosa Ding RN RN cm10
[2024-06-23] MEDS ORDERED: ONDANSETRON 4 MG/2 ML VIAL IV PRN (22:45)
[2024-06-23] MEDS ORDERED: ACETAMINOPHEN 325 MG TABLET PO PRN (22:45)
--- NOTE | 2024-06-23 22:52 | P.HP ---
Patient History Date of Service: 06/24/24 Reason for admission: Acute kidney injury History of Present Illness: 23-year-old male with minimal past medical history presenting with muscle aches and cramping for the last day. He has been getting muscle cramps since 1:00 earlier today. He describes the muscle cramps as global including the neck, arms, back, and legs. In addition to working outside in the heat he has not been drinking water. Associated symptoms include nausea. He uses nicotine, alcohol, and marijuana on occasion. No other concerns at this time Allergies No Known Allergies Allergy (Unverified 06/24/24 01:58) Home Medications: NK [No Home Meds] 06/24/24 Review of Systems General: Unremarkable Eyes: Unremarkable ENT: Unremarkable Respiratory: Unremarkable Cardiovascular: Unremarkable Gastrointestinal: Unremarkable Genitourinary: Unremarkable Musculoskeletal: Arm Pain, Back Pain, Hand Pain, Leg Pain Integumentary: Unremarkable Neurological: Unremarkable Lymphatics: Unremarkable Physical Examination - Physical Exam General: Alert, In no apparent distress HEENT: Atraumatic, Normocephalic Neck: Supple Respiratory: Clear to auscultation bilaterally, Normal air movement Cardiovascular: No edema Capillary refill: <2 Seconds Gastrointestinal: Normal bowel sounds, Soft and benign Musculoskeletal: No clubbing Integumentary: No rashes Neurological: Normal speech, Normal strength at 5/5 x4 extr Lymphatics: No axilla or inguinal lymphadenopathy - Studies Laboratory Data (last 24 hrs) 06/23/24 06/23/24 20:32 20:32 WBC 13.70 H Hgb 16.3 Hct 47.1 Plt Count 316 Sodium 130 L Potassium 3.6 BUN 19 H Creatinine 2.60 H Glucose 122 H Assessment and Plan - Plan Acute kidney injury Muscle breakdown Leukocytosis Hyponatremia Admit to floor Start IV hydration Monitor CK level Repeat CBC and CMP Tylenol as needed Urinalysis pending DVT prophylaxis with heparin - Advance Directives Does patient have a Living Will: No Does patient have a Durable POA for Healthcare: No
[2024-06-23] MEDS ORDERED: HEPARIN 5000 UNIT/ML 1 ML VIAL ONE (23:14)
[2024-06-23] MEDS: NA CHLORIDE 0.9% 1,000 ML IV SCH (23:19)
[2024-06-24 00:29] VITALS: BMI 24.3
[2024-06-24] MEDS: HEPARIN 5000 UNIT/ML 1 ML VIAL SQ SCH (01:00)
[2024-06-24 05:06] VITALS: O2SAT 98
[2024-06-24 06:35] LABS: Absolute Basophils 0.1 K/uL (0-0.5); Absolute Eosinophils 0.2 K/uL (0-0.5); Absolute Lymphocytes (CBC) 2.4 K/uL (0.7-4.9); Absolute Monocytes 1.1 K/uL (0.1-1.3); Absolute Neutrophil 4.6 K/uL (1.8-8.0); Basophils % 0.9 % (0-1.3); Eosinophils % 2.2 % (0-4.4); Hematocrit 41.7 % (39.6-49.0); Hemoglobin 14.5 g/dL (13.6-17.9); Lymphocytes % 29.2 % (15.3-44.8); MCH 30.9 pg (27.0-35.0); MCHC 34.7 g/dL (32.0-36.0); MCV 89.1 fL (80-100); MPV 7.6 fL (7.6-11.3); Monocytes % 12.8 % (3.3-12.3); Neutrophils % 54.9 % (41.7-73.7); Platelets 253 thou/uL (152-406); RBC Red Blood Cell Count 4.67 M/uL (4.33-5.43); Red Cell Distribution Width 13.9 % (12.1-15.2)
[2024-06-24 06:59] LABS: Albumin 3.9 g/dL (3.4-5.0); Albumin/Globulin Ratio 1.1 (1.1-1.8); Anion Gap 10.5 mEq/L (5.0-15.0); Bilirubin Direct 0.3 mg/dL (0-0.2); Bilirubin Indirect, Calculated 0.8 mg/dL (0.2-0.8); Bilirubin Total 1.1 mg/dL (0.2-1.0); Globulin 3.6 g/dL (2.3-3.5); Potassium 3.5 mEq/L (3.5-5.1); Protein, Total 7.5 g/dL (6.4-8.2)
--- NOTE | 2024-06-24 11:16 | P.PN ---
Date of Service: 06/24/24 Subjective: feeling better muscle cramps resolved shortly after arrival denies any new / worsening problem Physical Exam: GEN: Alert, oriented, NAD CV: Regular rate and rhythm, no edema Pulm: Nonlabored respirations on room air, clear bilaterally ABD: soft, nontender, nondistended Neuro: Normal speech, normal affect Problem List: Acute Rhabdomyolysis ROSS, resolved Mild hyponatremia, improved Elevated LFTs On admission, presents with weakness and diffuse muscle aches to neck, back and bilateral arms/legs Pain/aches started after he had been working outside in the heat for several hours and states he had drank minimal to no water that day. CPK 633 on admission, Creatinine 2.6. Creatinine quickly improved with IV hydration in ED. ROSS resolved within a few hours. Patient reports muscle cramps resolved shortly after arrival. continue IV fluids Elevated LFTs likely reactive to rhabdo VTE: Heparin Code: Full Dispo: Home later today vs tomorrow Monitor throughout the day and see if he can tolerate lunch Time Spent Managing Pts Care (In Minutes): 55
[2024-06-24 12:05] VITALS: BP 132/70; TEMP 98.2
--- NOTE | 2024-06-24 12:34 | EKG ---
Test Date: 2024-06-23 Test Time: 21:14:00 Trim Installer: MAVIS MEASUREMENT RESULTS: Intervals: Rate: 81 MI: 128 QRSD: 98 QT: 380 QTc: 441 [place]: P: 77 MI: 128 QRS: 78 T: 65 INTERPRETIVE STATEMENTS: Normal sinus rhythm Possible Left atrial enlargement Incomplete right bundle branch block Borderline ECG Compared to ECG 08/18/2020 20:52:52 Incomplete right bundle-branch block now present Sinus bradycardia no longer present Sinus arrhythmia no longer present Electronically Signed On 06-24-24 12:32:40 CDT by Hugo Thompson
[2024-06-24] MEDS: POTASSIUM CL SA 10 MEQ TAB PO ONE (13:41)
--- NOTE | 2024-06-25 06:39 | P.DS ---
Admission Date: 06/23/24 Discharge Date: 06/24/24 Disposition: ROUTINE DISCHARGE Discharge Condition: GOOD Reason for Admission: Acute kidney injury Brief History of Present Illness: 23 yo M, PMH: none Patient presenting with muscle aches and cramping for the last day. He has been getting muscle cramps since 1:00 earlier today. He describes the muscle cramps as global including the neck, arms, back, and legs. In addition to working outside in the heat he has not been drinking water. Associated symptoms include nausea. He uses nicotine, alcohol, and marijuana on occasion. No other concerns at this time Hospital Course: Physician discharge instructions: Patient presented with weakness and diffuse muscle aches to neck, back and bilateral arms/legs secondary to acute rhabdomyolysis. CPK on admission 633, Creatinine 2.6. Patient reports pain started after he had been working outside in the heat for several hours and states he had drank minimal to no water that day. He was given IV fluids in the ED and had quick turnaround. Muscle cramps resolved shortly after arrival per patient and renal function returned back to normal (1.28) within a few hours. Patient was feeling better close to his normal self, muscle aches improved, tolerating diet without issues, and was deemed stable for discharge. Recommend taking it easy for the next 3-5 days. No heavy lifting or extraneous activity for 3-5 days. Okay to return to work on 05/29 with no restrictions. Advised patient to ensure proper breaks at work and to stay adequately hydrated to reduce further episodes. Medications: No change in home medications. Follow up: PCP in 3-5 days Please call to schedule / confirm appointments Vital Signs/Physical Exam: Temp Pulse Resp BP Pulse Ox 98.2 F 84 17 132/70 100 06/24/24 12:00 06/24/24 12:00 06/24/24 12:00 06/24/24 12:00 06/24/24 12:00 Laboratory Data at Discharge: WBC 8.30 thou/uL (4.3-10.9) 06/24/24 06:07 Hgb 14.5 g/dL (13.6-17.9) D 06/24/24 06:07 Hct 41.7 % (39.6-49.0) 06/24/24 06:07 Plt Count 253 thou/uL (152-406) 06/24/24 06:07 Sodium 138 mEq/L (136-145) D 06/24/24 06:07 Potassium 3.5 mEq/L (3.5-5.1) 06/24/24 06:07 BUN 13 mg/dL (7-18) 06/24/24 06:07 Creatinine 1.28 mg/dL (0.70-1.30) 06/24/24 06:07 Glucose 94 mg/dL (74-106) 06/24/24 06:07 Total Bilirubin 1.1 mg/dL (0.2-1.0) H 06/24/24 06:07 AST 44 U/L (15-37) H 06/24/24 06:07 ALT 32 U/L (16-61) 06/24/24 06:07 Alkaline Phosphatase 135 U/L (45-117) H 06/24/24 06:07 Home Medications: NK [No Home Meds] 06/24/24 Physician Discharge Instructions: Physician discharge instructions: Patient presented with weakness and diffuse muscle aches to neck, back and bilateral arms/legs secondary to acute rhabdomyolysis. CPK on admission 633, Creatinine 2.6. Patient reports pain started after he had been working outside in the heat for several hours and states he had drank minimal to no water that day. He was given IV fluids in the ED and had quick turnaround. Muscle cramps resolved shortly after arrival per patient and renal function returned back to normal (1.28) within a few hours. Patient was feeling better close to his normal self, muscle aches improved, tolerating diet without issues, and was deemed stable for discharge. Recommend taking it easy for the next 3-5 days. No heavy lifting or extraneous activity for 3-5 days. Okay to return to work on 05/29 with no restrictions. Advised patient to ensure proper breaks at work and to stay adequately hydrated to reduce further episodes. Medications: No change in home medications. Follow up: PCP in 3-5 days Please call to schedule / confirm appointments Followup: NONE,NONE [Primary Care Provider] - Time spent managing pt's care (in minutes): 45
== END 2024-06-24 14:17 | disposition home or self-care (01) | DRG 558 ==
LOC: ER 20:10 → ERHOLD 22:45 → 4TH 06-24 05:07
PROVIDERS: ADMIT Family Medicine; ATTEND Hospitalist
DX: M62.82 Rhabdomyolysis (principal); N17.9 Acute kidney failure, unspecified; E87.1 Hypo-osmolality and hyponatremia
CPT/HCPCS: 36415; 80048; 80053; 82248; 82550; 85025; 93005; 96360; 96361; 99285; J1644; J7030